=== PATIENT | male | born 1955 | race Caucasian/White ===

== ENCOUNTER 2018-08-11 12:27 | Inpatient (IN) ==
[2018-08-11 13:59] LABS: BASO# 0.11 X1000 (0.0-0.2); BASO% 0.8 % (0.0-0.8); EOS# 0.39 X1000 (0.0-0.7); EOS% 2.9 % (0.0-10.0); HEMATOCRIT 46.4 % (42.0-52.0); HEMOGLOBIN 16.5 g/dL (14.0-18.0); LYMPH# 3.34 X1000 (1.2-3.4); LYMPH% 24.9 % (20.5-51.1); MCH 31.7 PG (27-31); MCHC 35.6 g/dL (33-37); MCV 89.2 FL (81-99); MONO# 0.92 X1000 (0.11-0.59); MONO% 6.9 % (1.7-9.3); MPV 10.5 FL (7.4-10.4); NEUT# 8.64 X1000 (1.4-6.5); NEUT% 64.5 % (42.2-75.2); PLT 198 X1000 (130-400); RDW 12.3 % (11.5-14.5)
[2018-08-11 14:06] LABS: INR 0.94; PROTIME 13.3 Seconds (11.0-16.0)
--- NOTE | 2018-08-11 14:06 | Diag Imaging Result Doc PS360 ---
CHEST-2 VIEWS - 08/11/2018 INDICATION: chest pain COMPARISON: None FINDINGS: The lungs are normally expanded and clear. Heart size and mediastinal contours are normal. No pneumothorax or pleural effusion. IMPRESSION: Negative exam. Electronically signed by Jn Richardson 08/11/2018 2:04 PM
--- NOTE | 2018-08-11 14:23 | EKG Report ---
Test Performed on : 08/11/2018 1:08:50 PM Test Reason : chest pain Blood Pressure : / mmHG Vent. Rate : 085 BPM Atrial Rate : 085 BPM P-R Int : 160 ms QRS Dur : 072 ms QT Int : 376 ms P-R-T Axes : 028 -38 033 degrees QTc Int : 447 ms Normal sinus rhythm. Left axis deviation Low voltage QRS Inferior infarct , age undetermined Cannot rule out Anteroseptal infarct , age undetermined Abnormal ECG No previous ECGs available Unconfirmed Result
[2018-08-11 14:25] LABS: AGAP 12; ALB/GLOB RATIO 1.5; ALBUMIN 4.1 g/dL (3.5-5.0); ALKALINE PHOSPHATASE 71 U/L (32-122); BUN 15 mg/dL (8-22); CALCIUM 8.6 mg/dL (8.8-10.2); CHLORIDE 99 mmol/L (98-107); CK PROFILE 58 U/L (24-204); COSMO 282; CREATININE 0.6 mg/dL (0.7-1.2); ESTIMATED GFR > 60; GLUCOSE 323 mg/dL (70-104); GOT 25 U/L (10-34); GPT 46 U/L (10-44); SODIUM 134 mmol/L (136-145); TCO2 23 mmol/L (25-35); TOTAL BILIRUBIN 0.81 mg/dL (0.20-1.00); TOTAL PROTEIN 6.8 g/dL (6.3-8.3)
--- NOTE | 2018-08-11 14:58 | PROVIDER DOCUMENTATION ---
This chart was entered by Gladys Ward Scribe, acting as scribe for Jai Hernández MD. HPI-Chest Pain - General Chief Complaint: Chest Pain Stated Complaint: CP Time Seen by Provider: 08/11/18 12:38 Source: patient, EMS - History of Present Illness-CP Nature of Presenting Problem: 63 yowm presents to the ed via ems with c/o chest pain, dizziness and elevated BGL. pt sts he was fasting this am to go see his pcp and believes his bgl had "went high" and pt had chest pain (numbness) left anterior and dizziness. pt sts went to his ex home and called 911. pt on exam is back to baseline and sts he feels great just needs us to give him some lunch Location: reports: other (left anterior) Chest Pain Radiation: reports: no radiation Quality of Pain: reports: aching, other (numbness) Severity in ED: moderate (5/10) Onset/Duration: this morning Timing: gone now Context/Activities at Onset: reports: light activity Modifying Factors: improves with: nothing Associated Symptoms: reports: dizziness. denies: abdominal pain, back pain, nausea, shortness of breath, vomiting Nitro Today/Relief: no nitro taken today Aspirin Treatment Today: 325 mg x 1, provided by EMS Similar Symptoms Previously?: Yes (sts same sx when his BGL is elevated) Recently Seen Here or By Another Healthcare Provider: No Review of Systems - Adult - REVIEW OF SYSTEMS - ADULT Constitutional: denies: chills, fever Eyes: reports: no symptoms reported Ears, Nose, Mouth & Throat: reports: no symptoms reported Cardiovascular: reports: see HPI, chest pain. denies: palpitations, syncope Respiratory: denies: shortness of breath, wheezing Gastrointestinal: denies: abdominal pain, diarrhea, nausea, vomiting Genitourinary: reports: no symptoms reported Musculoskeletal: denies: back pain, neck pain Integumentary: reports: no symptoms reported Neurological: reports: see HPI, dizziness/vertigo. denies: slurred speech, syncope, tremors Psychiatric: reports: no symptoms reported Endocrine: reports: no symptoms reported Hematologic/Lymphatic: reports: no symptoms reported Allergic/Immunologic: reports: no symptoms reported All Other Systems: Reviewed and Negative Past History - Adult - PAST MEDICAL HISTORY-ADULT Review of Records: reports: Nursing Assessment Review, Medications Reviewed Major Childhood Illnesses: reports: denies history Cardiovascular: reports: HTN, hyperlipidemia Respiratory: reports: denies history Gastrointestinal: reports: denies history Genitourinary: reports: denies history Musculoskeletal: reports: denies history Hand Dominance: Right Handed Neurological: reports: denies history Psychiatric: reports: denies history Endocrine/Immune: reports: Diabetes Diabetes Type: Type 2 Other Conditions: reports: denies history - PRIOR SURGERIES/PROCEDURES Surgical/Procedure History: reports: orthopedic (extremity) - IMMUNIZATION STATUS Childhood Immunizations: See Nurse Assessment Flu Vaccine: See Nurse Assessment - FAMILY HISTORY Family History: reviewed, not pertinent - SOCIAL HISTORY Smoking: denies Substance Use: denies Living Situation: family Physical Exam-General - PHYSICAL EXAM-ADULT Initial Vital Signs Reviewed: Yes - CONSTITUTIONAL General Appearance: appears well, alert, no apparent distress (pt sts all pain has resolved and now he just needs to eat), obese - EYES Eyes: PERRL/EOMI, pink conjunctivae - HEAD, EARS, NOSE, MOUTH & THROAT HENMT: moist mucous membranes, normal ENT inspection - NECK Neck: non-tender, full range of motion, supple, normal inspection - RESPIRATORY Respiratory: chest non-tender, lungs clear, normal breath sounds, no pleuratic chest pain, no respiratory distress, no accessory muscle use - CARDIOVASCULAR Cardiovascular: normal peripheral pulses, regular rate, rhythm - GASTROINTESTINAL (ABDOMEN) Abdominal Exam: normal bowel sounds, non tender, soft, no organomegaly, no pulsatile mass - LYMPHATIC Lymphatic: no adenopathy - MUSCULOSKELETAL Back Exam: normal inspection, no CVA tenderness, no vertebral tenderness, other (has brace on rt knee) Extremity: normal range of motion, non-tender, normal gait, normal inspection, no pedal edema, no calf tenderness, pelvis stable - SKIN Integumentary: normal color, normal turgor, warm/dry - NEUROLOGIC Neurologic: grossly normal, no motor/sensory deficits - PSYCHIATRIC Psych/Mental Status: normal mood/affect, normal thought content, normal thought process, oriented x 3 - HEART Score HEART Score: History: Slightly Suspicious HEART Score: ECG: Non-Specific Repolarization Disturbance/LBBB/PM HEART Score: Age: 45-65 Years HEART Score: Risk Factors for Atherosclerotic Disease: > or = 3 Risk Factors or History of Atherosclerotic Disease HEART Score: Troponin: < or = Normal Limit Total HEART Score:: 4 Progress - PLAN OF CARE/RESULTS Progress/Plan/Lab Results: Vital Signs - 8 hr 08/11/18 13:20 Pulse Rate 76 Respiratory Rate 19 Blood Pressure 116/78 O2 Sat by Pulse Oximetry 100 Laboratory Results - last 24 hr 08/11/18 08/11/18 08/11/18 13:45 13:45 13:45 WBC 13.40 H RBC 5.20 Hgb 16.5 Hct 46.4 MCV 89.2 MCH 31.7 H MCHC 35.6 RDW Std Deviation 12.3 Plt Count 198 MPV 10.5 H Neut % (Auto) 64.5 Lymph % (Auto) 24.9 [place] % (Auto) 6.9 Eos % (Auto) 2.9 Baso % (Auto) 0.8 Neut # (Auto) 8.64 H Lymph # (Auto) 3.34 [place] # (Auto) 0.92 H Eos # (Auto) 0.39 Baso # (Auto) 0.11 PT INR PTT (Actin FS) Sodium 134 L Potassium 5.0 Chloride 99 Carbon Dioxide 23 L Anion Gap 12 BUN 15 Creatinine 0.6 L Estimated GFR/1.73 m2 > 60 BUN/Creatinine Ratio 25 Glucose 323 H Calculated Osmolality 282 Calcium 8.6 L Total Bilirubin 0.81 AST 25 ALT 46 H Alkaline Phosphatase 71 Creatine Kinase 58 Troponin T Mff-B-Nhkyrcasdgt Pept 11 Total Protein 6.8 Albumin 4.1 Globulin 2.7 Albumin/Globulin Ratio 1.5 08/11/18 08/11/18 13:45 13:45 WBC RBC Hgb Hct MCV MCH MCHC RDW Std Deviation Plt Count MPV Neut % (Auto) Lymph % (Auto) [place] % (Auto) Eos % (Auto) Baso % (Auto) Neut # (Auto) Lymph # (Auto) [place] # (Auto) Eos # (Auto) Baso # (Auto) PT 13.3 INR 0.94 PTT (Actin FS) 23.0 Sodium Potassium Chloride Carbon Dioxide Anion Gap BUN Creatinine Estimated GFR/1.73 m2 BUN/Creatinine Ratio Glucose Calculated Osmolality Calcium Total Bilirubin AST ALT Alkaline Phosphatase Creatine Kinase Troponin T < 0.010 Sga-N-Qewklkqbarv Pept Total Protein Albumin Globulin Albumin/Globulin Ratio Orders Category Date Time Status Cardiac Monitoring DIRECTED Care 08/11/18 13:39 Active Oxygen Therapy- ED Nursing DIRECTED Care 08/11/18 13:39 Active Saline Loc NOW Care 08/11/18 13:39 Active CHEST-2 VIEWS [RAD] Stat Exams 08/11/18 13:39 Completed CBC WITH ELECTRONIC DIFF [HEME] Stat Lab 08/11/18 13:45 Completed CK PROFILE [SP CHEM] Stat Lab 08/11/18 13:45 Completed COMPREHENSIVE METABOLIC PANEL [CHEM] Stat Lab 08/11/18 13:45 Completed PRO B-NATRIURETIC PEPTIDE Stat Lab 08/11/18 13:45 Completed PROTIME WITH INR [COAG] Stat Lab 08/11/18 13:45 Completed PTT [COAG] Stat Lab 08/11/18 13:45 Completed TROPONIN T Stat Lab 08/11/18 13:45 Completed CP/SOB/Palp >45 yrs of Age Stat Oth 08/11/18 13:39 Ordered EKG [EKG] Stat Ther 08/11/18 13:39 Draft Result Diagrams: 08/11/18 13:45 08/11/18 13:45 - REASSESSMENT Reassessment #1 Time Reassessed: 14:36 Status: improving - EKG 1 Time of EKG reading by physician:: 13:08 EKG Read and Signed by:: Jai Hernández EKG Interpretation (*Must complete 3 of following elements*): Abnormal Rate: 85 Rhythm: nsr [place]: left (deviation) QRS: other (low voltage qrs) NE Interval: normal Comments: inferior infarct, age undetermined - XRAY 1 XRAY: Bilateral XRAY Study: Chest Impression: See EMR Report (CHEST-2 VIEWS - 08/11/2018 INDICATION: chest pain COMPARISON: None FINDINGS: The lungs are normally expanded and clear. Heart size and mediastinal contours are normal. No pneumothorax or pleural effusion. IMPRESSION: Negative exam. Electronically signed by Jn Richardson 08/11/2018 2:04 PM 08/11/18 1404 Interpreting Physician: Jn Richardson MD Dictated Date/Time: 08/11/18 1402 cc: Jai Hernández MD;) - CONSULTS/PCP/HOSPITALIST Notification #1 *Consult/PCP/Hospitalist*: hospitalist dr cardoso Time Discussed: 14:56 Consult Disposition: Admit Departure - Departure Date of Disposition Decision: 08/11/18 Time of Disposition Decision: 14:57 DIAGNOSIS: Chest pain, Uncontrolled diabetes mellitus, Hypertension Disposition: ADMITTED INPATIENT 09 Certified Medical Emergency: Emergent Condition: Fair - Critical Care Note This patient required my direct & personal management of CC.: No Attestation - Physician/ NANDO Attestation Patient care was provided by Advanced Practice Provider:: No The physician spent face to face time with patient:: Yes Advanced Practice Provider documentation review:: Supervising physician onsite and consulted in the evaluation and care of this patient. The physician did have a face to face encounter with the patient. This chart was documented by the indicated scribe, (Gladys Ward Scribe) and accurately reflects the services I performed and decisions made by me, Jai Hernández MD, as attested by the provider's signature.
[2018-08-11] MEDS: ASPIRIN PO SCH (15:15)
[2018-08-11] MEDS ORDERED: DUONEB (A & A) INH PRN ×2 (15:46→16:00)
[2018-08-11] MEDS ORDERED: NS 1,000 ML IV ONE (15:46)
[2018-08-11] MEDS: HUMALOG SUBQ SCH ×2 (16:00→20:56)
[2018-08-11] MEDS: NICODERM PATCH TD SCH (16:05)
[2018-08-11 16:30] LABS: HEMOGLOBIN A1C 9.3 % (4.8-6.0)
--- NOTE | 2018-08-11 16:34 | HISTORY AND PHYSICAL ---
PRIMARY CARE PROVIDER: Dr. Kvng Morocho CHIEF COMPLAINT: Chest pain. HISTORY OF PRESENT ILLNESS: Mr. Lopez is a 63-year-old male with a history of diabetes mellitus type 2, hypertension, hyperlipidemia, and nicotine dependence who presents with chest pain that began yesterday evening. Yesterday at around 6:00 or 7:00 p.m. he started having a left-sided chest pain which he describes as a dull ache possibly radiating up to the left neck, jaw, and shoulder. He was at rest, essentially sitting and watching television when the pain came on. It lasted throughout the night and did not change in quality and was associated with some mild shortness of breath. There was no nausea, vomiting, or diaphoresis. He was actually scheduled for blood work at Dr. Morocho's office today but called 911 instead because he was having discomfort and dizziness. He has no fever or chills. He does have a chronic cough. No lower extremity edema. No orthopnea. He does report some occasional paroxysmal nocturnal dyspnea. He denies any abdominal pain. No dysuria, diarrhea, or constipation. In the E.R. his workup was fairly unremarkable. He did have a white count of 13,000 and a blood sugar of 323 with no evidence of diabetic ketoacidosis. His EKG and chest x-ray are also negative. He does have risk factors so we are going to admit him for evaluation of the chest pain. PAST MEDICAL HISTORY: 1. Hypertension. 2. Hyperlipidemia. 3. Diabetes mellitus type 2. 4. Nicotine dependence. PAST SURGICAL HISTORY: He has had a right inguinal hernia repair and a cholecystectomy. SOCIAL HISTORY: He smokes a pack a day. Denies alcohol or drug use. He has a grown child. He is on disability. He is single and lives with his mother. FAMILY HISTORY: The only report of coronary disease is possibly his father but he is unsure. He also has a brother that had a triple bypass. Age of onset in both of those is unknown. REVIEW OF SYSTEMS: A 14 point review of systems was obtained and found to be negative with the exception of the HPI. ALLERGIES: Not recorded. HOME MEDICATIONS: Not yet reconciled. PHYSICAL EXAMINATION: VITAL SIGNS: Blood pressure is 116/78, heart rate 76, respiratory rate 19, and O2 sat 100% on nasal cannula at 2 L. GENERAL: Overweight, disheveled appearing, 63-year-old male lying in a hospital bed in no acute distress. NEUROLOGIC: Awake, alert, and oriented. Follows commands. No focal deficits. HEENT: The head is atraumatic and normocephalic. Pupils are equal, round, and reactive to light. Oral mucosa is slightly dry. NECK: Trachea is midline. There is no JVD. CHEST: Clear to auscultation. Diminished at the bases. CV: Regular rate and rhythm. S1 and S2 are noted. No murmurs, gallops, clicks, or rubs. GI: Soft, nondistended, and nontender. Bowel sounds are positive. EXTREMITIES: No edema, clubbing, or cyanosis. Pulses are 1+ bilaterally. DIAGNOSTIC DATA: Chest x-ray is negative. EKG: Sinus rhythm. First degree AV block. No acute ST or T abnormalities. WBC is 13.4, hemoglobin 16.5, hematocrit 46.4, and platelet count 198. INR is 0.94. Sodium is 134, potassium 5, chloride 99, CO2 23, anion gap 12, BUN 15, creatinine 0.6, glucose 323, calcium 8.6, bilirubin 0.81, AST 25, ALT 46, and ALK PHOS 71. CK is 58. Troponin is negative. ProBNP is 11. ASSESSMENT AND PLAN: 1. Chest pain: Fairly atypical in nature but the patient does have a few risk factors including diabetes mellitus, hypertension, hyperlipidemia, and possibly family history. We will admit him for observation status, trend his cardiac enzymes, check and echocardiogram, and check a stress test in the morning. He will need risk factor modification and smoking cessation education. 2. Type 2 diabetes: We will add some IV fluids as he is fairly hyperglycemic. We will put him on high dose sliding scale, check a hemoglobin A1c, and check pattern sugars. 3. Hyperlipidemia: Check lipids in the morning and treat accordingly. I do not believe he is on any cholesterol lower agents. 4. Nicotine dependence: We have advised the patient to quit smoking. We will write for a nicotine patch and continue cessation education. 5. Deep vein thrombosis prophylaxis with Lovenox. Further recommendations to follow. Dictated by DALE Lamar for Gaston Jameson MD cc: DALE Lamar MD I have seen and examined Mr Lopez today. He presents with Chest pain and has significant risk factors. He will be admitted for cardiac re-stratification. I agree with the above HPI and the plan reflects my opinion discussed with the TWISTING DEPARTMENT END FINDER. I have also discussed my plan with Mr Lopez. [place]
[2018-08-11] MEDS ORDERED: LOVENOX SUBQ SCH (17:00)
[2018-08-11 19:20] LABS: UR AMPHETAMINES QUAL PRESUMPTIVE POSITIVE (NONE DETECT); UR BARBITUATES QUAL NONE DETECTED (NONE DETECT); UR BENZODIAZEPIN QUAL NONE DETECTED (NONE DETECT); UR CANNABINOIDS QUAL NONE DETECTED (NONE DETECT); UR COCAINE QUAL NONE DETECTED (NONE DETECT); UR METHADONE QUAL NONE DETECTED (NONE DETECT); UR OPIATES QUAL NONE DETECTED (NONE DETECT); UR OXYCODONE QUAL NONE DETECTED (NONE DETECT); UR PCP QUAL NONE DETECTED (NONE DETECT)
[2018-08-11 19:28] LABS: URINE SOURCE CLEAN CATCH
[2018-08-11 19:30] LABS: BILIRUBIN URINE NEGATIVE (NEGATIVE); BLOOD URINE NEGATIVE (NEGATIVE); COLOR YELLOW; GLUCOSE URINE >1000 mg/dL (NEGATIVE); KETONE URINE TRACE mg/dL (NEGATIVE); LEUKOCYTES URINE NEGATIVE (NEGATIVE); NITRITE URINE NEGATIVE (NEGATIVE); PROTEIN URINE NEGATIVE (NEGATIVE); SP GRAVITY URINE 1.038; TURBIDITY URINE CLEAR (CLEAR); UROBILINOGEN URINE NORMAL (NORMAL)
[2018-08-11 19:32] LABS: UR EPITHELIAL CELLS <10 /HPF (<10); URINE BACTERIA NEGATIVE /HPF; URINE RBC <10 /HPF (<10); URINE WBC <10 /HPF (<10)
[2018-08-11 20:04] LABS: URINE CRYSTALS NONE SEEN; URINE YEAST PRESENT
--- NOTE | 2018-08-11 23:55 | ECHO REPORT ---
ORDER DATE: 08/11/2018 MEASUREMENTS: Septal thickness 1.3, posterior wall thickness 1.3, aortic root 2.8, left atrium 2.4. SUMMARY: 1. Technically difficult study due to limited acoustic window quality. 2. Aortic valve is without evidence of structural abnormality and opens adequately on 2- dimensional images. Peak gradient across the aortic valve is less than 10 mmHg. There is trace aortic regurgitation. Mitral and tricuspid valves are without evidence of structural abnormality while pulmonic valve is not well demonstrated. There is trace tricuspid regurgitation. The estimated systolic PA pressure by Doppler is 35 mmHg, suggesting mild pulmonary hypertension. Aortic root is normal size. 3. Normal left ventricular chamber size with mild concentric left hypertrophy is demonstrated. Estimated left ventricular ejection fraction appears to be at least 65%. No obvious regional wall motion abnormality can be appreciated. Left atrium, right atrium, right ventricle are normal in size with grossly preserved right ventricular systolic function. 4. No pericardial effusion. 5. Inferior vena cava not well demonstrated. cc: MD Erick Pena CRNP
[2018-08-12] MEDS: HUMALOG SUBQ SCH ×2 (06:43→12:57)
[2018-08-12 07:18] VITALS: BP 128/73
[2018-08-12 08:02] LABS: HEMATOCRIT 43.4 % (42.0-52.0); HEMOGLOBIN 15.3 g/dL (14.0-18.0); MCH 31.5 PG (27-31); MCHC 35.3 g/dL (33-37); MCV 89.5 FL (81-99); MPV 10.4 FL (7.4-10.4); RBC 4.85 XMIL (4.7-6.1); RDW 12.3 % (11.5-14.5); WBC 10.14 X1000 (4.8-10.8)
[2018-08-12 08:06] LABS: AGAP 10; BUN 14 mg/dL (8-22); CHLORIDE 101 mmol/L (98-107); CK PROFILE 61 U/L (24-204); COSMO 277; CREATININE 0.5 mg/dL (0.7-1.2); ESTIMATED GFR > 60; GLUCOSE 208 mg/dL (70-104); POTASSIUM 4.3 mmol/L (3.5-5.1); SODIUM 135 mmol/L (136-145); TCO2 24 mmol/L (25-35)
[2018-08-12] MEDS ORDERED: LANTUS INSULIN SUBQ SCH (09:00)
[2018-08-12] MEDS: NICODERM PATCH TD SCH (10:43)
[2018-08-12] MEDS ORDERED: LEXISCAN ONE (12:20)
[2018-08-12] MEDS: ASPIRIN PO SCH (14:22)
--- NOTE | 2018-08-12 14:46 | Diag Imaging Result Document ---
PROCEDURE NAME: MYOCARDIAL PERF SCAN, STR/REST - 08/12/2018 LEXISCAN CARDIOLITE STRESS TEST: FINDINGS: Lexiscan was infused per standard protocol. There was no chest pain. Stress electrocardiogram was negative for ischemia. Following Lexiscan infusion, Cardiolite was injected. 12.5 mCi of Cardiolite was injected for the rest phase, 36 millicuries of Cardiolite was injected for the stress phase. Images revealed chest wall and diaphragmatic attenuation. Normal left ventricular cavity size. Normal myocardial perfusion. Left ventricular ejection fraction by gated SPECT was 70%. CONCLUSIONS: 1. No chest pain. 2. Negative Lexiscan stress electrocardiogram. 3. Normal myocardial perfusion. 4. Left ventricular ejection fraction 70%. cc: MD Erick Faulkner CRNP
--- NOTE | 2018-08-13 12:51 | DISCHARGE SUMMARY ---
ADMISSION DATE: 08/11/2018 DISCHARGE DATE: 08/12/2018 DISPOSITION: Home. FOLLOWUP: Follow up will be with patient's PCP Dr. Kvng Morocho. CONSULTATIONS DURING THIS ADMISSION: None. INVASIVE PROCEDURE DONE DURING THIS ADMISSION: None. IMAGING STUDIES OF SIGNIFICANCE: 1. Chest x-ray was negative. 2. Echocardiogram showed an ejection fraction of 65%. No obvious regional wall motion abnormality was appreciated. 3. Myocardial perfusion scan showed normal studies with ejection fraction of 70%. 4. The patient's troponins were trended 4 times, all negative. ADMISSION DIAGNOSES: 1. Chest pain. 2. Diabetes mellitus. 3. Dyslipidemia. 4. Nicotine dependence. DIAGNOSES AT THE TIME OF DISCHARGE: 1. Atypical chest pain with normal echocardiogram, stress test, and normal troponins. This is deemed to be noncardiac in origin. 2. Uncontrolled diabetes mellitus with a presenting A1c of 9.3. 3. Dyslipidemia. 4. Nicotine dependence. 5. Medication noncompliance. DISCHARGE MEDICATIONS: 1. Gabapentin 400 mg 3 times per day. 2. Januvia 100 mg daily. 3. Lisinopril 20 mg daily. 4. Pravastatin 20 mg at bedtime. 5. Metformin 1000 daily. PRESENTING COMPLAINT: Chest pain. HISTORY OF PRESENTING COMPLAINT: Mr. Lopez is a 63-year-old male who presented to the emergency department because of chest discomfort. He is diabetic. He has dyslipidemia. He has hypertension and he is also chronic smoker and he also has a family history of coronary artery disease in a brother with a triple bypass. Because of his risk factors and high heart score, the patient was admitted for cardiac risk stratification. HOSPITAL COURSE: Mr. Lopez was admitted to the medical floor. He was adequately hydrated, was kept NPO for cardiac workup. Stress test and echo were done. Patient's troponins were also trended. EKG was unremarkable. We got the results back, everything seems to be fine. The patient this morning refers that his chest pain has resolved and with the negative testing, we thought he was okay for discharge. Mr. Lopez said that he had ran out of his prescription for some time and that is why his A1c was that elevated, so he has been given a prescription for about 3 months supply. He has been advised to follow up with his primary care doctor, Dr. Morocho. Other discharge instructions have been discussed with him. We will also stressed the utmost importance of tobacco cessation. Time spent for discharge is 35 minutes. cc: MD Kvng Michelle MD
== END 2018-08-12 16:02 | disposition home or self-care (01) | DRG 313 ==
LOC: EDIPHOLD 12:27 → ED 12:27 → OBSVTOIN 16:40 → 3N 21:53
PROVIDERS: ATTEND Internal Medicine
CPT/HCPCS: 71020; 71046; 78452; 80048; 80053; 80061; 80101; 80301; 80307; 80324; 80345; 80346; 80353; 80358; 80361; 80365; 81001; 82550; 82948; 83036; 83721; 83880; 83992; 84484; 85025; 85027; 85610; 85730; 93005; 93017; 93306; 94761; 96372; 99285; A9270; A9500; G0431; G0434; G0479; G0480; J1650; J1815; J2785; J7030; XXXXX

== ENCOUNTER 2019-02-11 12:38 | Inpatient (IN) ==
--- NOTE | 2019-02-11 13:24 | Diag Imaging Result Doc PS360 ---
EXAM: CT HEAD W/O CONTRAST HISTORY: stroke like symptoms TECHNIQUE: CT head without contrast COMPARISON: None. FINDINGS: No parenchymal hemorrhage. No epidural or subdural hematoma. No subarachnoid hemorrhage. No mass identified on this noncontrasted exam. No hydrocephalus. No sinus opacification. IMPRESSION: No hemorrhage. Negative brain CT without contrast. This exam was performed using automated exposure control, adjustment of mA or kV according to patient size, and/or use of iterative reconstruction technique. Electronically signed by Fer Enriquez 02/11/2019 1:22 PM
--- NOTE | 2019-02-11 13:30 | Diag Imaging Result Doc PS360 ---
EXAM: CHEST-PORTABLE HISTORY: stroke like symptoms TECHNIQUE: 02/10/2019 COMPARISON: 08/11/2018 FINDINGS: Poor inspiratory effort. The heart is not enlarged. The vessels are not distended. There are no infiltrates. No effusion identified. IMPRESSION: Negative exam. Electronically signed by Fer Enriquez 02/11/2019 1:27 PM
[2019-02-11 13:33] LABS: BASO# 0.06 X1000 (0.0-0.2); BASO% 0.5 % (0.0-0.8); EOS% 0.8 % (0.0-10.0); HEMATOCRIT 49.3 % (42.0-52.0); IMM GRAN# 0.07 X1000 (0.0-0.04); IMM GRAN% 0.6 % (0.0-0.5); LYMPH% 16.1 % (20.5-51.1); MCHC 34.5 g/dL (33-37); MCV 87.1 FL (81-99); MONO# 0.89 X1000 (0.11-0.59); MONO% 7.2 % (1.7-9.3); MPV 9.8 FL (7.4-10.4); NEUT# 9.31 X1000 (1.4-6.5); NEUT% 74.8 % (42.2-75.2); PLT 201 X1000 (130-400); RBC 5.66 XMIL (4.7-6.1); RDW 12.7 % (11.5-14.5); WBC 12.43 X1000 (4.8-10.8)
[2019-02-11 13:42] LABS: INR 0.97
[2019-02-11 13:43] LABS: PTT 24.4 Seconds (22.3-41.8)
[2019-02-11 13:56] LABS: AGAP 16; ALB/GLOB RATIO 1.9; ALBUMIN 4.3 g/dL (3.5-5.0); ALKALINE PHOSPHATASE 75 U/L (32-122); BUN 11 mg/dL (8-22); CALCIUM 9.5 mg/dL (8.8-10.2); CHLORIDE 99 mmol/L (98-107); COSMO 283; CREATININE 0.6 mg/dL (0.7-1.2); ESTIMATED GFR > 60; GLUCOSE 249 mg/dL (70-104); GOT 23 U/L (10-34); GPT 25 U/L (10-44); POTASSIUM 4.4 mmol/L (3.5-5.1); SODIUM 138 mmol/L (136-145); TCO2 23 mmol/L (25-35); TOTAL BILIRUBIN 1.01 mg/dL (0.20-1.00); TOTAL PROTEIN 6.6 g/dL (6.3-8.3)
[2019-02-11 15:24] LABS: URINE SOURCE CATH
[2019-02-11 15:32] LABS: BILIRUBIN URINE NEGATIVE (NEGATIVE); BLOOD URINE NEGATIVE (NEGATIVE); COLOR YELLOW; GLUCOSE URINE >1000 mg/dL (NEGATIVE); KETONE URINE 40 mg/dL (NEGATIVE); LEUKOCYTES URINE NEGATIVE (NEGATIVE); NITRITE URINE NEGATIVE (NEGATIVE); PH URINE 5.5; PROTEIN URINE TRACE mg/dL (NEGATIVE); SP GRAVITY URINE 1.036; TURBIDITY URINE CLEAR (CLEAR); UROBILINOGEN URINE NORMAL (NORMAL)
[2019-02-11 15:34] LABS: UR EPITHELIAL CELLS <10 /HPF (<10); URINE BACTERIA NEGATIVE /HPF; URINE RBC <10 /HPF (<10); URINE WBC <10 /HPF (<10)
[2019-02-11] MEDS ORDERED: ATIVAN IV ONE (15:45)
--- NOTE | 2019-02-11 15:48 | PROVIDER DOCUMENTATION ---
This chart was entered by Irene Allen Scribe, acting as scribe for Jai Hernández MD. HPI-Neurological Disorder - General Stated Complaint: Poss Stroke Time Seen by Provider: 02/11/19 12:41 Source: patient, family, EMS Allergies/Adverse Reactions: Patient Allergies Allergy/AdvReac Type Severity Reaction Status Date / Time Tetanus Vaccines and Toxoid Allergy Unknown Verified 08/11/18 16:50 Home Medications: Home Medication List Medication Instructions Recorded Confirmed Last Taken Type NK [No Home Medications] 02/11/19 02/11/19 Unknown History - History of Present Illness-Neuro Nature of Presenting Problem: 63yom presents to ED by EMS cc stroke like symptoms according to EMS. EMS reports pt family last saw him normal last night and called for a well check this morning. When EMS arrived they had to break in the door and found pt with slurred speech, right side deficits and only knows name. Onset of symptoms is unknown. Pt daughter is at bedside and reports she called pt numerous times this morning with no answer and then called for well check, when she and EMS got inside pt was in floor, said he couldn't feel right side. Daughter also reports pt has DM and has been out of meds due to no insurance. Pt reports he is unsure how he got in floor. Onset/Duration: reports: unsure Timing: reports: still present Context: reports: impaired speech Character of Deficits: reports: new weakness (right side face and RUE), impaired speech New weakness or altered sensation location:: reports: RUE Associated Symptoms: reports: confusion Similar Symptoms Previously?: No Recently seen or treated by another doctor?: No Review of Systems - Adult - REVIEW OF SYSTEMS - ADULT ROS:: ROS per family Constitutional: reports: see HPI. denies: chills, fever, weight loss Eyes: reports: no symptoms reported Ears, Nose, Mouth & Throat: reports: no symptoms reported Cardiovascular: reports: no symptoms reported Respiratory: reports: no symptoms reported Gastrointestinal: reports: no symptoms reported Genitourinary: reports: no symptoms reported Musculoskeletal: reports: no symptoms reported Integumentary: reports: no symptoms reported Neurological: reports: see HPI, slurred speech, other (right side deficits) Psychiatric: reports: no symptoms reported Endocrine: reports: no symptoms reported Hematologic/Lymphatic: reports: no symptoms reported Allergic/Immunologic: reports: no symptoms reported All Other Systems: Reviewed and Negative Past History - Adult - PAST MEDICAL HISTORY-ADULT Review of Records: reports: Nursing Assessment Review, Medications Reviewed, Social history reviewed & non-contributory. Major Childhood Illnesses: reports: denies history Cardiovascular: reports: denies history Respiratory: reports: denies history Gastrointestinal: reports: denies history Obstetrical/Gynecological: reports: denies history Genitourinary: reports: denies history Musculoskeletal: reports: denies history Neurological: reports: denies history Endocrine/Immune: reports: denies history Other Conditions: reports: denies history - IMMUNIZATION STATUS Childhood Immunizations: See Nurse Assessment Flu Vaccine: See Nurse Assessment - FAMILY HISTORY Family History: reviewed, not pertinent Physical Exam- Neurological - Physical Exam-Neuro Initial Vital Signs Reviewed: Yes General Appearance: lethargic, slow to respond. negative: anxious, combative Eye Exam: bilateral eye: normal inspection, PERRL HENMT: normocephalic/atraumatic, moist mucous membranes. negative: angioedema Head Injury: no evidence of injury. negative: contusions Respiratory: chest non-tender, lungs clear, normal breath sounds. negative: wheezing Cardiovascular: normal peripheral pulses, regular rate, rhythm, no edema. negative: bradycardia, tachycardia Abdominal Exam: normal bowel sounds, non tender, soft. negative: rebound Extremity: normal inspection. 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 negative: jaundice Psych/Mental Status: negative: anxious, disheveled - Glascow Coma Scale Best Eye Response: (3) open to voice Best Verbal Response: (4) confused conversation Best Motor Response: (5) localizes to pain Total Glascow Score: 12 Progress - PLAN OF CARE/RESULTS Progress/Plan/Lab Results: Vital Signs - 8 hr 02/11/19 13:03 02/11/19 13:04 02/11/19 13:15 Temperature Pulse Rate 85 Respiratory Rate 15 Blood Pressure 155/94 O2 Sat by Pulse Oximetry 100 100 98 02/11/19 13:23 02/11/19 14:01 02/11/19 15:02 Temperature 97.6 F Pulse Rate 88 87 88 Respiratory Rate 10 L 15 20 Blood Pressure 155/94 173/100 154/72 O2 Sat by Pulse Oximetry 96 99 98 02/11/19 15:31 Temperature Pulse Rate 99 H Respiratory Rate 15 Blood Pressure 173/84 O2 Sat by Pulse Oximetry 97 Laboratory Results - last 24 hr 02/11/19 02/11/19 02/11/19 13:19 13:19 13:19 WBC 12.43 H RBC 5.66 Hgb 17.0 Hct 49.3 MCV 87.1 MCH 30.0 MCHC 34.5 RDW Std Deviation 12.7 Plt Count 201 MPV 9.8 Immature Gran % (Auto) 0.6 H Neut % (Auto) 74.8 Lymph % (Auto) 16.1 L [place] % (Auto) 7.2 Eos % (Auto) 0.8 Baso % (Auto) 0.5 Immature Gran # (Auto) 0.07 H Neut # (Auto) 9.31 H Lymph # (Auto) 2.00 [place] # (Auto) 0.89 H Eos # (Auto) 0.10 Baso # (Auto) 0.06 PT 13.0 INR 0.97 PTT (Actin FS) 24.4 Sodium 138 Potassium 4.4 Chloride 99 Carbon Dioxide 23 L Anion Gap 16 BUN 11 Creatinine 0.6 L Estimated GFR/1.73 m2 > 60 BUN/Creatinine Ratio 18 Glucose 249 H Calculated Osmolality 283 Calcium 9.5 Total Bilirubin 1.01 H AST 23 ALT 25 Alkaline Phosphatase 75 Ammonia Troponin T Total Protein 6.6 Albumin 4.3 Globulin 2.3 Albumin/Globulin Ratio 1.9 Urine Source Urine Color Urine Turbidity Urine pH Ur Specific [place] Urine Protein Ur Glucose (Stick) Ur Ketones (Stick) Urine Blood Urine Nitrite Urine Bilirubin Urobilinogen Dipstick Urine Leukocytes Urine WBC (Auto) Urine RBC (Auto) U Epithel Cells (Auto) Urine Bacteria (Auto) Urine Opiates Screen Ur Oxycodone Screen Ur Methadone, Qual Ur Barbiturates Screen Ur Phencyclidine Scrn Ur Amphetamines Screen U Benzodiazepines Scrn Urine Cocaine Screen U Cannabinoids Screen 02/11/19 02/11/19 02/11/19 13:19 14:35 15:05 WBC RBC Hgb Hct MCV MCH MCHC RDW Std Deviation Plt Count MPV Immature Gran % (Auto) Neut % (Auto) Lymph % (Auto) [place] % (Auto) Eos % (Auto) Baso % (Auto) Immature Gran # (Auto) Neut # (Auto) Lymph # (Auto) [place] # (Auto) Eos # (Auto) Baso # (Auto) PT INR PTT (Actin FS) Sodium Potassium Chloride Carbon Dioxide Anion Gap BUN Creatinine Estimated GFR/1.73 m2 BUN/Creatinine Ratio Glucose Calculated Osmolality Calcium Total Bilirubin AST ALT Alkaline Phosphatase Ammonia 11 L Troponin T < 0.010 Total Protein Albumin Globulin Albumin/Globulin Ratio Urine Source CATH Urine Color YELLOW Urine Turbidity CLEAR Urine pH 5.5 Ur Specific [place] 1.036 Urine Protein TRACE A Ur Glucose (Stick) >1000 A Ur Ketones (Stick) 40 A Urine Blood NEGATIVE Urine Nitrite NEGATIVE Urine Bilirubin NEGATIVE Urobilinogen Dipstick NORMAL Urine Leukocytes NEGATIVE Urine WBC (Auto) <10 Urine RBC (Auto) <10 U Epithel Cells (Auto) <10 Urine Bacteria (Auto) NEGATIVE Urine Opiates Screen Ur Oxycodone Screen Ur Methadone, Qual Ur Barbiturates Screen Ur Phencyclidine Scrn Ur Amphetamines Screen U Benzodiazepines Scrn Urine Cocaine Screen U Cannabinoids Screen 02/11/19 15:05 WBC RBC Hgb Hct MCV MCH MCHC RDW Std Deviation Plt Count MPV Immature Gran % (Auto) Neut % (Auto) Lymph % (Auto) [place] % (Auto) Eos % (Auto) Baso % (Auto) Immature Gran # (Auto) Neut # (Auto) Lymph # (Auto) [place] # (Auto) Eos # (Auto) Baso # (Auto) PT INR PTT (Actin FS) Sodium Potassium Chloride Carbon Dioxide Anion Gap BUN Creatinine Estimated GFR/1.73 m2 BUN/Creatinine Ratio Glucose Calculated Osmolality Calcium Total Bilirubin AST ALT Alkaline Phosphatase Ammonia Troponin T Total Protein Albumin Globulin Albumin/Globulin Ratio Urine Source Urine Color Urine Turbidity Urine pH Ur Specific [place] Urine Protein Ur Glucose (Stick) Ur Ketones (Stick) Urine Blood Urine Nitrite Urine Bilirubin Urobilinogen Dipstick Urine Leukocytes Urine WBC (Auto) Urine RBC (Auto) U Epithel Cells (Auto) Urine Bacteria (Auto) Urine Opiates Screen NONE DETECTED Ur Oxycodone Screen NONE DETECTED Ur Methadone, Qual NONE DETECTED Ur Barbiturates Screen NONE DETECTED Ur Phencyclidine Scrn NONE DETECTED Ur Amphetamines Screen PRESUMPTIVE POSITIVE A U Benzodiazepines Scrn NONE DETECTED Urine Cocaine Screen NONE DETECTED U Cannabinoids Screen NONE DETECTED Orders Category Date Time Status Cardiac Monitoring DIRECTED Care 02/11/19 12:41 Active Finger Stick Blood Sugar (ED) DIRECTED Care 02/11/19 12:41 Active Oxygen Therapy- ED Nursing DIRECTED Care 02/11/19 12:41 Active Saline Loc NOW Care 02/11/19 12:41 Active CHEST-PORTABLE [RAD] Stat Exams 02/11/19 12:[address] HEAD W/O CONTRAST [CT] Stat Exams 02/11/19 12:41 Completed AMMONIA [CHEM] Stat Lab 02/11/19 14:35 Completed CBC WITH ELECTRONIC DIFF [HEME] Stat Lab 02/11/19 13:19 Completed CK TOTAL [CHEM] Stat Lab 02/11/19 13:19 Received COMPREHENSIVE METABOLIC PANEL [CHEM] Stat Lab 02/11/19 13:19 Completed PROTIME WITH INR [COAG] Stat Lab 02/11/19 13:19 Completed PTT [COAG] Stat Lab 02/11/19 13:19 Completed TROPONIN T Stat Lab 02/11/19 13:19 Completed URINALYSIS W/POSS RFLX CULT [URINALYSIS] Stat Lab 02/11/19 15:05 Completed URINE DRUG SCREEN Stat Lab 02/11/19 15:05 Completed 0.9% Sodium Chloride Inj [Ns] 1,000 ml Med 02/11/19 12:41 Active IV 250 mls/hr Aspirin Med 02/11/19 15:49 Discontinued 325 mg PO NOW ONE Lorazepam [Ativan] Med 02/11/19 15:45 Discontinued 1 mg IV NOW ONE Lorazepam [Ativan] Med 02/11/19 16:06 Discontinued 2 mg .ROUTE .STK-MED ONE EKG [EKG] Stat Ther 02/11/19 12:41 Ordered Result Diagrams: 02/11/19 13:19 02/11/19 13:19 - EKG 1 Time of EKG reading by physician:: 13:26 EKG Read and Signed by:: Jai Hernández EKG Interpretation (*Must complete 3 of following elements*): Abnormal (inferior infarct,age undetermined; anteroseptal infarct,age undetermined) Rate: 89 Rhythm: NSR [place]: left FL Interval: normal - CT/MRI 1 CT Study: Head Impression: See EMR Report (IMPRESSION: No hemorrhage. Negative brain CT without contrast. This exam was performed using automated exposure control, adjustment of mA or kV according to patient size, and/or use of iterative reconstruction technique. Electronically signed by Fer Zoe 02/11/2019 1:22 PM) - CONSULTS/PCP/HOSPITALIST Notification #1 *Consult/PCP/Hospitalist*: Pt discussed with uSe [facility] for Hospitalist Consult Disposition: Will see in ED, Admit Departure - Departure Date of Disposition Decision: 02/11/19 Time of Disposition Decision: 15:46 DIAGNOSIS: Stroke, Hypertension, Uncontrolled diabetes mellitus, AMS (altered mental status), Substance abuse Disposition: ADMITTED INPATIENT 09 Certified Medical Emergency: Emergent Condition: Fair Referrals and Follow-Ups: Kvng Morocho [Primary Care Provider] - - Critical Care Note This patient required my direct & personal management of CC.: No Attestation - Physician/ NANDO Attestation Patient care was provided by Advanced Practice Provider:: No The physician spent face to face time with patient:: Yes Advanced Practice Provider documentation review:: Supervising physician onsite and consulted in the evaluation and care of this patient. The physician did have a face to face encounter with the patient. - NIH Stroke Scale NIH Type: Initial Evaluation Level of Consciousness: 1-Drowsy, but arousable with minimal stimulation LOC Questions (ask month and age): 0-Answers Both Correctly LOC Commands (ask to open & close eyes;make a fist, let go): 2-Both Incorrect Best Gaze (horizontal eye movement): 0-Normal Visual (use finger movement, counting or visual threat): 0-No Visual Loss Facial Palsy (show teeth or raise eyebrows & close eyes tght: 0-Symmetrical Movement Motor Function-left arm: 0-Normal Motor Function-right arm: 2-Some Effort Against [place] Motor Function-left le-Normal Motor Function-right le-Normal Limb Ataxia([id number], or heel to mcpherson): 0-No Ataxia Sensory(pin prick to face,arms,trunk,legs-compare side/side): 1-Mild to Moderate Decrease in Sensation Best Language(name item/read sentence.Ex-Down to Earth): 0-No Aphasia Dysarthria(Pt read words or say words Ex.Mama,Tip-Top,Thanks: 0-Normal Articulation Extinction and Inattention: 1-Partial Neglect NIH Total Score: 7 Modified Thornton Score Criteria: 3-moderate disability This chart was documented by the indicated scribe, (Irene Allen, Vikasibkm) and accurately reflects the services I performed and decisions made by me, Jai Hernández MD, as attested by the provider's signature.
[2019-02-11] MEDS ORDERED: ASPIRIN PO ONE (15:49)
[2019-02-11 15:53] LABS: UR AMPHETAMINES QUAL PRESUMPTIVE POSITIVE (NONE DETECT); UR BARBITUATES QUAL NONE DETECTED (NONE DETECT); UR BENZODIAZEPIN QUAL NONE DETECTED (NONE DETECT); UR CANNABINOIDS QUAL NONE DETECTED (NONE DETECT); UR COCAINE QUAL NONE DETECTED (NONE DETECT); UR METHADONE QUAL NONE DETECTED (NONE DETECT); UR OPIATES QUAL NONE DETECTED (NONE DETECT); UR OXYCODONE QUAL NONE DETECTED (NONE DETECT); UR PCP QUAL NONE DETECTED (NONE DETECT)
[2019-02-11] MEDS: NS 1,000 ML IV PRN ×2 (16:05→21:26)
[2019-02-11] MEDS ORDERED: ATIVAN ONE (16:06)
[2019-02-11] MEDS ORDERED: ASPIRIN PR ONE (16:30)
--- NOTE | 2019-02-11 16:38 | EKG Report ---
Test Performed on : 02/11/2019 1:06:40 PM Test Reason : Stroke like symptoms Blood Pressure : / mmHG Vent. Rate : 089 BPM Atrial Rate : 089 BPM P-R Int : 160 ms QRS Dur : 078 ms QT Int : 384 ms P-R-T Axes : 051 -38 047 degrees QTc Int : 467 ms Normal sinus rhythm. Left axis deviation Inferior infarct (cited on or before 11-AUG-2018) Anteroseptal infarct (cited on or before 11-AUG-2018) Abnormal ECG When compared with ECG of 11-AUG-2018 13:08, No significant change was found Unconfirmed Result
[2019-02-11] MEDS ORDERED: ZOFRAN IV PRN (16:52)
[2019-02-11] MEDS ORDERED: SODIUM CHLORIDE 0.9% INJ SCH (17:00)
[2019-02-11] MEDS ORDERED: APRESOLINE IV PRN (17:42)
--- NOTE | 2019-02-11 18:06 | HISTORY AND PHYSICAL ---
CHIEF COMPLAINT: Stroke. HISTORY OF PRESENT ILLNESS: This is a 63-year-old gentleman with a prior history of COPD, diabetes mellitus and hypertension, who presented to the emergency room via EMS. At the time of my exam the patient is sedated on Ativan after becoming combative. There are no family members present, so information is taken from the chart and ER record. Mr. Lopez's family reported seeing him normal last night. They called this morning to check on him. He did not answer after multiple calls; therefore, they called for a welfare check. On EMS arrival, they had to break the door down to get into the house, found the patient lying on the floor naked. He had slurred speech, right-sided deficits and he only knew his name. The daughter did report he has diabetes and hypertension, and he quit taking his medications because of lack of insurance. CT scan of the head revealed a negative brain CT without contrast. PAST MEDICAL HISTORY: Diabetes mellitus, hypertension, COPD. PAST SURGICAL HISTORY: Cholecystectomy. SOCIAL HISTORY: He smokes a pack a day. The family denies any alcohol use. They denied any illicit drug use, although he did have a drug screen positive for amphetamines. ALLERGIES: Recorded in the chart are tetanus vaccine and toxoid, with unknown reaction. HOME MEDICATIONS: None. REVIEW OF SYSTEMS: Unable to obtain. PHYSICAL EXAMINATION: GENERAL: This is a 63-year-old gentleman who is lying on the stretcher on his left side, sedated after Ativan in no distress. VITAL SIGNS: Blood pressure is 173/84 with a heart rate of 99, respirations 16, temperature is 97.6 degrees oral with room air saturations 98% to 99%. HEENT: Pupils are equal, round and react to light. Sclerae are anicteric. Head is normocephalic, atraumatic. Mucous membranes are moist. NECK: Supple. Trachea midline. CARDIOVASCULAR: Regular rate and rhythm. S1 and S2 appreciated. Peripheral pulses are palpable x4 extremities. PULMONARY: Breath sounds are clear with no increased work of breathing noted. Chest rises and falls symmetrically with respiration. GASTROINTESTINAL: Abdomen is soft, nondistended, with bowel sounds in all 4 quadrants. NEUROLOGIC: The patient is sedated at present. SKIN: Warm and dry. LABORATORY DATA: WBC is 12, hemoglobin 17, hematocrit 49.3, and platelets 201,000. Sodium 138, potassium 4.4, BUN 11, creatinine 0.6 with a glucose of 249. Troponin is negative. Urinalysis reveals greater than 1000 glucose, otherwise negative. Urine drug screen is positive for amphetamines. DIAGNOSTIC DATA: CT of the head revealed no hemorrhage; negative brain CT. Chest x-ray: Negative exam. ASSESSMENT: 1. Cerebrovascular accident with right-sided deficits. 2. Diabetes mellitus type 2, with noncompliance. 3. Hypertension, with noncompliance with medications. 4. Altered mental status. 5. Substance abuse. PLAN: The patient will be admitted to the step-down unit, placed on telemetry with neurologic checks per stroke protocol. permissive hypertension, treating pressure greater than 190 systolic and 100 diastolic with hydralazine p.r.n., Ativan 1 mg q.4 hours as needed for agitation. gentle hydration. TSH, folate and B12. CBC and CMP in the morning. hemoglobin A1c. Pattern blood glucose with sliding scale insulin. Echocardiogram and carotid Doppler in the morning. Plan was discussed with Dr Gutierrez. Further treatments pending hospital course. Dictated by DALE Monroe for Tres Astorga MD Addendum: Patient seen and examined by myself. Agree with DALE note. It reflects my assessment and plan. Patient is being admitted to hospital for for CVA with right side deficit. Will consult Neurology and will order MRI of brain, MRA of brain and neck. Will start PT/OT and swallow evaluation. Will monitor patient closely. cc: DALE Monroe MD [facility]
[2019-02-11] MEDS: ATIVAN IV PRN ×2 (19:17→23:03)
[2019-02-11] MEDS: HUMALOG SUBQ SCH (21:07)
[2019-02-11] MEDS: PROTONIX IV SCH (21:14)
[2019-02-11] MEDS ORDERED: NS 1,000 ML IV SCH (23:30)
[2019-02-12] MEDS: ATIVAN IV PRN ×4 (04:46→22:13)
[2019-02-12 06:07] LABS: BASO# 0.08 X1000 (0.0-0.2); BASO% 0.6 % (0.0-0.8); EOS# 0.12 X1000 (0.0-0.7); HEMATOCRIT 42.4 % (42.0-52.0); HEMOGLOBIN 14.5 g/dL (14.0-18.0); IMM GRAN# 0.05 X1000 (0.0-0.04); IMM GRAN% 0.4 % (0.0-0.5); LYMPH# 2.34 X1000 (1.2-3.4); MCH 31.3 PG (27-31); MCHC 34.2 g/dL (33-37); MCV 91.4 FL (81-99); MONO# 1.13 X1000 (0.11-0.59); MONO% 9.2 % (1.7-9.3); NEUT# 8.61 X1000 (1.4-6.5); NEUT% 69.8 % (42.2-75.2); PLT 211 X1000 (130-400); RBC 4.64 XMIL (4.7-6.1); WBC 12.33 X1000 (4.8-10.8)
[2019-02-12 06:21] LABS: AGAP 15; ALB/GLOB RATIO 1.3; ALBUMIN 3.3 g/dL (3.5-5.0); ALKALINE PHOSPHATASE 62 U/L (32-122); BUN 11 mg/dL (8-22); CALCIUM 8.3 mg/dL (8.8-10.2); CHLORIDE 103 mmol/L (98-107); COSMO 274; CREATININE 0.5 mg/dL (0.7-1.2); ESTIMATED GFR > 60; GLUCOSE 149 mg/dL (70-104); GOT 19 U/L (10-34); GPT 18 U/L (10-44); POTASSIUM 3.5 mmol/L (3.5-5.1); SODIUM 136 mmol/L (136-145); TCO2 18 mmol/L (25-35); TOTAL BILIRUBIN 1.48 mg/dL (0.20-1.00); TOTAL PROTEIN 5.8 g/dL (6.3-8.3)
[2019-02-12 06:30] LABS: TSH 1.59 uIUmL (0.27-4.20)
[2019-02-12] MEDS: HUMALOG SUBQ SCH ×4 (06:33→20:36)
[2019-02-12 06:36] LABS: CHOLESTEROL 97 mg/dL (0-200); HDL 39 mg/dL (35-55); LDL 41 mg/dL; TRIGLYCERIDES 83 mg/dL (39-160); VLDL 17 mg/dL
[2019-02-12 07:02] LABS: HEMOGLOBIN A1C 9.8 % (4.8-6.0)
--- NOTE | 2019-02-12 10:25 | PROGRESS NOTE ---
DATE: 02/12/2019 SUBJECTIVE: This patient is agitated and mumbles some unintelligible words. Did not answer any questions. OBJECTIVE: Vital Signs: Temperature 99 degrees, heart rate 92, respiratory rate 16, blood pressure 165/77, O2 saturation 93% on room air. General examination: This is a 63-year-old male, lying in bed in no acute distress. Cardiovascular exam: S1, S2 heard. No murmurs, gallops, or rubs. Regular rate and rhythm. Respiratory exam: Clear bilaterally to auscultation. No work of breathing or using accessory muscles. Abdomen: Soft, nontender to palpation. Bowel sounds present. No organomegaly. Extremities: No clubbing, cyanosis or edema. Peripheral pulses present in both legs. Neurological exam: The patient apparently has right- sided hemiparesis and does not follow any commands. ASSESSMENT AND PLAN: 1. Acute cerebrovascular accident with right-sided deficit. 2. Diabetes mellitus type 2. 3. Hypertension. 4. Altered mental status. 5. Substance abuse. At this point, we are going to do an MRI of the brain. Neurology has been consulted. We will do also an echocardiogram and we will go from there. At this point, we will continue with n.p.o. because patient looks like he is confused. It is not safe to bring him some food. We will continue to monitor this patient closely. cc: Tres Astorga MD
--- NOTE | 2019-02-12 12:46 | Diag Imaging Result Doc PS360 ---
EXAM: CT HEAD W/CONTRAST HISTORY: CVA TECHNIQUE: CT head with intravenous contrast COMPARISON: 02/11/2019 FINDINGS: There is a hypodense area in the posterior left temporal lobe and anterior left occipital lobe on the current exam. This is consistent with a subacute infarct. No parenchymal hemorrhage. No epidural or subdural hematoma. No subarachnoid hemorrhage. No hydrocephalus. No midline shift. No enhancing lesion on the post contrasted images. IMPRESSION: Recent left temporal occipital infarct This exam was performed using automated exposure control, adjustment of mA or kV according to patient size, and/or use of iterative reconstruction technique. Electronically signed by Fer Enriquez 02/12/2019 12:44 PM
--- NOTE | 2019-02-12 13:08 | CONSULTATION ---
DATE OF CONSULTATION: 02/12/2019 HISTORY OF PRESENT ILLNESS: Mr. Lopez is 63 years old and report from family is that he was found down at home midday yesterday, approximately 24 hours ago. He was reported to be awake and alert and unable to communicate well with speech. Not clear that he had any trouble understanding what was said to him. Daughter had visited with him in person the night before and reports he seemed well then. The next morning, family were unable to reach him by telephone. Family was concerned and went to check on him. They knocked on the door and did not get an answer. They tapped on his bedroom window and heard him calling for help. Eventually, the door was broken down and they entered the home and found the patient on the floor, apparently awake and alert, having some trouble with communicating with speech, unable to get up. Duration of time down is not certain. Family reports that he falls occasionally and that has been attributed to his diabetic peripheral neuropathy and chronic gait difficulty. Family reports he has been able to get up without assistance in the past. Family reports no prior history of stroke, serious head injury, seizure, other neurologic event. Family reports he uses ethanol occasionally but never or almost never to the point of intoxication. He was not taking his prescribed medicines for the last few months, which included medicines for diabetes mellitus and hypertension. He continued to smoke cigarettes. His urine drug screen was positive for amphetamine this admission and family cannot account for that finding. They believe that illicit drug use would not be impossible. Workup includes noncontrast CT of the head which shows some fairly minor micro ischemic change but nothing focal or acute and no bleeding. He has been afebrile. Systolic blood pressures have ranged 130s to 170s. Heart rate has ranged 80s to 100s. PHYSICAL EXAMINATION: On exam, Mr. Lopez is supine, restrained at the wrists, moving all limbs vigorously, but moving the left arm more purposefully than the right. He has left gaze preference, turns his head to the left, attempts to turn his body to the left repeatedly. He was not initially attentive to me, but with vigorous stimulation and talking to him loudly, he followed some simple commands including holding up 2 fingers and protruding his tongue. He raised his left arm and used it purposefully. He did not raise his right arm to command. He said a few words, but did not speak to my command. He did name objects or parts of objects. He provided powerful lens molder with the left hand and not with the right. There is brisk withdrawal with noxious stimulation over each foot. Plantar response is silent bilaterally. Reflexes are absent at the ankles bilaterally. He seemed incompletely attentive but not as responsive as expected to pinprick over the ankles. He did respond to pinprick over the thigh bilaterally and over the hand bilaterally. He was not attentive to proprioception testing. I did not test his gait. He has full lateral eye movement with left gaze preference as mentioned above. He consistently counted fingers correctly in the left visual field and consistently either did not count fingers or counted fingers incorrectly in the right visual field. Tongue protrudes slightly to the right. He has good facial motility bilaterally. Neck is supple. I do not find evidence of skull defect on head palpation. IMPRESSION: 1. Minimal right hemiparesis, possibly some expressive dysphasia, risk factors for cerebrovascular ischemic problems. I suspect he has had a dominant left hemisphere stroke, but that is not certain. Initial negative CT would not exclude acute ischemic infarction. 2. He has clinical evidence of peripheral neuropathy, presumed diabetic neuropathy. 3. Reported chronic gait difficulty. 4. Urine drug screen positive for amphetamine. This finding would often be spurious but might indicate substance ingestion to account for some of his restlessness and inattention. PLAN: I do not have urgent suggestion. Brain MRI and MRA are ordered, but I suspect he will not be still and if he is not sedated, those studies may not provide much helpful information. If MRI is not helpful, we might consider repeating CT scan with contrast (creatinine and 0.5 this morning) to see if we can identify evidence of left hemisphere infarction. We might consider EEG if he continues altered. I discussed at some length with family at the bedside the complicating features of peripheral neuropathy and his restlessness and global encephalopathy with question of substance ingestion. Blood sugars are moderately elevated but generally not in a range that would produce encephalopathy. I do not see anything else in the chemistry profile that likely would cause encephalopathy. Thanks for asking Neurology to see Mr. Lopez. cc: MD SERGIO Beltrán III
[2019-02-12] MEDS: HALDOL IV PRN (17:36)
[2019-02-12] MEDS: PROTONIX IV SCH (20:37)
[2019-02-13] MEDS: HALDOL IV PRN ×3 (01:16→22:38)
[2019-02-13] MEDS: HUMALOG SUBQ SCH ×4 (06:17→20:23)
[2019-02-13 06:42] LABS: BASO# 0.06 X1000 (0.0-0.2); BASO% 0.5 % (0.0-0.8); EOS# 0.16 X1000 (0.0-0.7); EOS% 1.3 % (0.0-10.0); HEMATOCRIT 42.7 % (42.0-52.0); HEMOGLOBIN 14.8 g/dL (14.0-18.0); IMM GRAN# 0.05 X1000 (0.0-0.04); IMM GRAN% 0.4 % (0.0-0.5); LYMPH# 2.59 X1000 (1.2-3.4); LYMPH% 20.3 % (20.5-51.1); MCH 30.9 PG (27-31); MCHC 34.7 g/dL (33-37); MCV 89.1 FL (81-99); MONO# 1.07 X1000 (0.11-0.59); MONO% 8.4 % (1.7-9.3); MPV 9.9 FL (7.4-10.4); NEUT# 8.86 X1000 (1.4-6.5); NEUT% 69.1 % (42.2-75.2); PLT 209 X1000 (130-400); RBC 4.79 XMIL (4.7-6.1); RDW 12.7 % (11.5-14.5); WBC 12.79 X1000 (4.8-10.8)
[2019-02-13 07:08] LABS: AGAP 20; ALB/GLOB RATIO 1.3; ALBUMIN 3.3 g/dL (3.5-5.0); ALKALINE PHOSPHATASE 65 U/L (32-122); BUN 13 mg/dL (8-22); CALCIUM 8.6 mg/dL (8.8-10.2); CHLORIDE 103 mmol/L (98-107); COSMO 281; CREATININE 0.6 mg/dL (0.7-1.2); ESTIMATED GFR > 60; GLUCOSE 121 mg/dL (70-104); GOT 21 U/L (10-34); GPT 16 U/L (10-44); POTASSIUM 3.3 mmol/L (3.5-5.1); SODIUM 140 mmol/L (136-145); TCO2 17 mmol/L (25-35); TOTAL BILIRUBIN 1.46 mg/dL (0.20-1.00); TOTAL PROTEIN 5.9 g/dL (6.3-8.3)
--- NOTE | 2019-02-13 07:10 | ECHO REPORT ---
ORDER DATE: 02/12/2019 MEASUREMENTS: 1. Septal thickness 1.1. 2. Left ventricular internal diameter in diastole 4.0. 3. Posterior wall thickness 1.1. 4. Left ventricular internal diameter in systole 3.1. 5. Aortic root 3.3. 6. Left atrium 2.8. SUMMARY: 1. Technically difficult study due to limited acoustic window quality. Intravenous echo contrast agent Optison was utilized to enhance endocardial definition. 2. Aortic valve is not well imaged but appears to be without evidence of structural abnormality. Aortic valve opening appears to be adequate. The peak gradient across the aortic valve is less than 10 mmHg. Mitral and tricuspid valves are without evidence of structural abnormality while pulmonic valve is not well demonstrated. The aortic root is normal in size. 3. Normal left ventricular chamber size with upper normal wall thickness demonstrated. The estimated left ventricular ejection fraction appears to be at least 65%. No regional wall motion abnormalities are evident. Doppler suggests grade 1 left ventricular diastolic dysfunction. The left atrium, right atrium, right ventricle are normal size with normal right ventricular systolic function. 4. No pericardial effusion. 5. Inferior vena cava not well demonstrated. CONCLUSIONS: 1. Technically difficult study. 2. No significant valvular abnormality demonstrated. 3. Normal left ventricular systolic function without wall motion abnormality evident. 4. Grade 1 left ventricular diastolic dysfunction suggested. cc: MD Jacy Pena CRNP
--- NOTE | 2019-02-13 10:46 | PROGRESS NOTE ---
DATE: 02/13/2019 SUBJECTIVE: As per family who is at bedside, this patient is a little more awake sometimes. He recognizes them. He does not follow commands to me and is a little bit restless today to me, too, as well. OBJECTIVE: Vital Signs: Temperature 98.3 degrees, heart rate 95, respiratory rate 17, blood pressure 131/74, O2 saturation 94% on room air. General: This is a 63-year-old male, lying in bed, in no acute distress. Cardiovascular: S1, S2 heard. No murmurs, gallops, or rubs. Regular rate and rhythm. Respiratory: Clear bilaterally to auscultation. No work of breathing or using accessory muscles. Abdomen: Soft, nontender to palpation. Bowel sounds present. No organomegaly. Extremities: No clubbing, cyanosis, or edema. Peripheral pulses present in both legs. Neurological: Patient apparently has a right-sided hemiparesis. Does not follow any commands. Does not talk. I do not know if he has expressive aphasia or not. LABORATORY DATA: Reviewed. CT scan from yesterday showed recent left temporooccipital infarct. ASSESSMENT AND PLAN: 1. Acute left temporooccipital infarct, aware. At this point, the patient continues to be confused and restless. Will provide medications for that. Considering that he is not able to be feed by mouth, we are going to start Clinimix lipids and will go from there. 2. Diabetes mellitus type 2. Will continue with sliding scale insulin and Accu-Chek before meals and also at bedtime. 3. Hypertension. Will allow permissive hypertension for this patient. Will continue to monitor this patient closely. 4. Altered mental status. I think this is secondary to stroke. Will continue to monitor. 5. Substance abuse, aware. 6. Disposition. At this point, will do an MRI of the brain and MRA of the brain on Friday. Because he is a little bit agitated and restless, will hold physical therapy over the weekend. Will restart on Friday. Will put Cloth Shrinking Machine Operator Helper consult. cc: Tres Astorga MD
[2019-02-13] MEDS: CLINIMIX E 4.25%-5% SOLUTION 1,000 ML IV SCH ×2 (11:49→20:23)
[2019-02-13] MEDS: ATIVAN IV PRN ×2 (13:54→21:36)
[2019-02-13] MEDS: PROTONIX IV SCH (20:24)
[2019-02-14] MEDS: ATIVAN IV PRN ×2 (02:38→18:59)
[2019-02-14] MEDS: HALDOL IV PRN ×2 (04:24→23:13)
[2019-02-14] MEDS: CLINIMIX E 4.25%-5% SOLUTION 1,000 ML IV SCH ×3 (05:55→16:05)
[2019-02-14] MEDS: HUMALOG SUBQ SCH ×4 (06:17→21:30)
[2019-02-14 06:34] LABS: BASO# 0.06 X1000 (0.0-0.2); BASO% 0.4 % (0.0-0.8); EOS% 0.7 % (0.0-10.0); HEMATOCRIT 45.6 % (42.0-52.0); HEMOGLOBIN 15.8 g/dL (14.0-18.0); IMM GRAN# 0.07 X1000 (0.0-0.04); IMM GRAN% 0.5 % (0.0-0.5); LYMPH# 2.11 X1000 (1.2-3.4); LYMPH% 15.1 % (20.5-51.1); MCH 30.9 PG (27-31); MCHC 34.6 g/dL (33-37); MCV 89.1 FL (81-99); MONO# 1.57 X1000 (0.11-0.59); MONO% 11.3 % (1.7-9.3); MPV 10.1 FL (7.4-10.4); NEUT# 10.03 X1000 (1.4-6.5); PLT 238 X1000 (130-400); RBC 5.12 XMIL (4.7-6.1); RDW 12.9 % (11.5-14.5); WBC 13.94 X1000 (4.8-10.8)
[2019-02-14 06:56] LABS: AGAP 22; ALB/GLOB RATIO 1.2; ALBUMIN 3.6 g/dL (3.5-5.0); ALKALINE PHOSPHATASE 69 U/L (32-122); BUN 21 mg/dL (8-22); CALCIUM 8.9 mg/dL (8.8-10.2); CHLORIDE 99 mmol/L (98-107); COSMO 283; CREATININE 0.6 mg/dL (0.7-1.2); ESTIMATED GFR > 60; GLUCOSE 278 mg/dL (70-104); GOT 24 U/L (10-34); GPT 16 U/L (10-44); POTASSIUM 4.1 mmol/L (3.5-5.1); SODIUM 135 mmol/L (136-145); TCO2 14 mmol/L (25-35); TOTAL BILIRUBIN 1.73 mg/dL (0.20-1.00); TOTAL PROTEIN 6.7 g/dL (6.3-8.3)
--- NOTE | 2019-02-14 11:26 | Carotid Study ---
DATE: 02/13/2019 SUEDE BRUSHER: Mike. REQUESTING PHYSICIAN: Gio. INDICATIONS: CVA. FINDINGS: Bilateral carotid arteries were visualized along their course. There was a calcified plaque noted in the right carotid bulb that extends to the proximal internal carotid artery that causes elevation of velocities that would correlate to a 40 to 59 percent stenosis on the left. There are no significant atherosclerotic changes. Vertebrals were antegrade bilaterally. Millinery Teacher noted this was a limited scan due to patient cooperation. IMPRESSION: Moderate degree of stenosis in the right carotid artery system with no significant atherosclerotic changes noted on the left. cc: MD Jacy Perkins CRNP
[2019-02-14] MEDS: ASPIRIN EC PO SCH (13:32)
--- NOTE | 2019-02-14 14:08 | PROGRESS NOTE ---
DATE: 02/14/2019 SUBJECTIVE: The patient has no major complaints. He is still very altered. OBJECTIVE: Vital Signs: Blood pressure 150/74, heart rate 105, respiratory rate 17, temperature 98.8 degrees. Cardiovascular: Regular rate and rhythm. Pulmonary: Bilateral breath sounds clear to auscultation. Gastrointestinal: Soft, nontender, nondistended. Bowel sounds are positive. Neurologic: I really could not get him to participate in much neurologically but according the nurse, he does open his eyes and try to interact, those kinds of things. Does say his name. I really could get him to cooperate with anything very much at all. LABORATORY DATA: White count is 13, hemoglobin and hematocrit are 15 and 45, platelets 238,000. Basic was normal. Sugar was 278 with an A1c of 9.8. PROBLEM LIST: 1. Acute left temporooccipital infarct. We will continue supportive measures. Not really sure what other workup we have. He has got an MRI planned and I plan for a CT angiogram of his head. We do need to go ahead and start aspirin and Lipitor if we can and work on blood sugar and eventually blood pressure. Nurse said he tolerated sips without difficulty. 2. Diabetes. Not controlled but we will continue to follow closely. He is on sliding scale insulin. We may have to initiate some long-term medications such as Lantus. 3. History of alcohol abuse. Aware. We are going to continue to monitor. That may be compounding some of his issues. DISPOSITION: Pending his confusion and status otherwise and his recovery, we will continue to follow. PT and OT will be consulted as well as Speech and we will continue to monitor. cc: Chauncey Jenkins MD
[2019-02-14] MEDS: PROTONIX IV SCH (20:39)
[2019-02-14] MEDS: LIPITOR PO SCH (20:39)
--- NOTE | 2019-02-14 20:56 | Diag Imaging Result Doc PS360 ---
EXAM: CT ANGIOGRAM HEAD/NECK HISTORY: cva TECHNIQUE: 1. CT angiogram head with intravenous contrast. Arteriogram protocol with MIP images. 2. CT angiogram neck with intravenous contrast. Arterial protocol with MIP images. COMPARISON: None. FINDINGS: Neck: No occlusion or stenosis within either common carotid artery. Prominent atherosclerosis within each carotid bulb. Narrowing on the right between 70 and 90%. Stenosis in the left bulb a 50%. The proximal vertebral arteries are obscured. The mid and distal vertebral arteries are normal. Head: Atherosclerosis within each distal internal carotid artery with narrowing of approximately 40%. Normal basilar artery. There is filling of the anterior cerebral arteries, middle cerebral arteries, and posterior cerebral arteries. There is a posterior communicating artery on the right. No aneurysm. IMPRESSION: Stenosis within each proximal internal carotid artery. This exam was performed using automated exposure control, adjustment of mA or kV according to patient size, and/or use of iterative reconstruction technique. Electronically signed by Fer Enriquez 02/14/2019 8:54 PM
[2019-02-15] MEDS: CLINIMIX E 4.25%-5% SOLUTION 1,000 ML IV SCH ×2 (02:11→12:16)
[2019-02-15] MEDS: LOVENOX SUBQ SCH (05:33)
[2019-02-15] MEDS: HUMALOG SUBQ SCH ×4 (06:17→21:02)
[2019-02-15 06:18] LABS: BASO# 0.09 X1000 (0.0-0.2); BASO% 0.8 % (0.0-0.8); EOS# 0.51 X1000 (0.0-0.7); EOS% 4.3 % (0.0-10.0); HEMATOCRIT 45.3 % (42.0-52.0); IMM GRAN# 0.07 X1000 (0.0-0.04); IMM GRAN% 0.6 % (0.0-0.5); LYMPH# 2.54 X1000 (1.2-3.4); LYMPH% 21.3 % (20.5-51.1); MCH 31.1 PG (27-31); MCHC 35.3 g/dL (33-37); MONO# 1.22 X1000 (0.11-0.59); MONO% 10.2 % (1.7-9.3); MPV 9.8 FL (7.4-10.4); NEUT# 7.52 X1000 (1.4-6.5); NEUT% 62.8 % (42.2-75.2); PLT 206 X1000 (130-400); RBC 5.15 XMIL (4.7-6.1); RDW 12.7 % (11.5-14.5); WBC 11.95 X1000 (4.8-10.8)
[2019-02-15 06:35] LABS: AGAP 17; BUN 17 mg/dL (8-22); CALCIUM 9.2 mg/dL (8.8-10.2); CHLORIDE 101 mmol/L (98-107); COSMO 282; CREATININE 0.4 mg/dL (0.7-1.2); ESTIMATED GFR > 60; GLUCOSE 226 mg/dL (70-104); POTASSIUM 4.2 mmol/L (3.5-5.1); SODIUM 137 mmol/L (136-145); TCO2 19 mmol/L (25-35)
[2019-02-15] MEDS: ASPIRIN EC PO SCH ×2 (07:32→08:09)
[2019-02-15] MEDS: ATIVAN IV PRN ×2 (09:19→17:22)
--- NOTE | 2019-02-15 10:14 | Diag Imaging Result Doc PS360 ---
MRI BRAIN W/O CONTRAST - 02/15/2019 INDICATION: CVA COMPARISON: Head CT 02/12/2019 FINDINGS: There is a large area of restricted diffusion mainly involving the left inferior, posterior cerebral hemisphere. This involves some of the left thalamus, the periventricular white matter, the inferior temporal and occipital lobes, and the corpus callosum on the left side. This is all probably mostly in the posterior cerebral artery territory. In addition, there are other small areas of restricted diffusion in the posterior right cerebral hemisphere and also in the left cerebellar hemisphere. No midline shift. No intracranial hemorrhage. There is moderate to advanced periventricular white matter gliosis compatible with chronic microvascular ischemia. IMPRESSION: 1. Large recent stroke in the left posterior cerebral artery territory. 2. Tiny recent strokes in the posterior right cerebral hemisphere and left cerebellar hemisphere. Electronically signed by Jn Richardson 02/15/2019 10:12 AM
--- NOTE | 2019-02-15 13:44 | PROGRESS NOTE ---
DATE: 02/15/2019 SUBJECTIVE: The patient resting in bed. He is able to follow simple commands. OBJECTIVE: Vital signs: Vital signs are as follows: Temperature 97.3 degrees, pulse is 82, respiratory rate 16, blood pressure is 151/84, oxygen saturation 99%. HEENT: Atraumatic, normocephalic. Cardiovascular exam: S1, S2. Respiratory system: Has evidence of good air entry bilaterally. Abdomen: Soft, nontender. No masses felt. Extremities: No evidence of edema. Central nervous system: Patient is difficult to really assess in light of his mental state. LABS: WBC 11.95, hematocrit 45.3 with a platelet count of 206. Sodium is 137, potassium 4.2, chloride is 101, bicarbonate 19. BUN is 17, creatinine 0.4. Urine drug screen positive for amphetamine. X-RAYS: MRI of the brain shows a large recent stroke in the left posterior cerebral artery territory. Tiny recent stroke in the posterior right cerebral hemisphere, as well as the left cerebral hemisphere. ASSESSMENT AND PLAN: 1. Acute cerebrovascular accident. MRI of the brain shows a large recent stroke in the left posterior cerebral artery territory. Tiny recent strokes in the posterior cerebral hemisphere, and also left cerebral hemisphere. Continue patient on aspirin, as well as statin. Allow for permissive hypertension. Continue physical therapy. Neurology is on board. 2. Diabetes mellitus. Continue blood sugar medications, as well as sliding scale insulin. 3. Hypertension, although permissive hypertension. 4. Encephalopathy, probably multifactorial from substance abuse, as well as recent stroke. Continue to follow up on patient's neurologic status. 5. Substance abuse. Aware. 6. Disposition: The patient will benefit from [facility] facility if he does qualify. Otherwise, he may have to go home with [facility]. cc: Gabino Roach MD
--- NOTE | 2019-02-15 13:48 | PROGRESS NOTE ---
DATE: 02/15/2019 ADDENDUM: Review of CT scan of the neck done on 02/14/2019 indicates a narrowing of the right carotid bulb to about 70 to 90 percent. Will consult with the surgical team. cc: Gabino Roach MD
--- NOTE | 2019-02-15 16:03 | PROGRESS NOTE ---
DATE: 02/15/2019 SUBJECTIVE: Sister at the bedside reports Mr. Lopez has been more alert. She reports she has had a little bit of conversation with him and that at least some of his words have been appropriate and sensible. She has some concerns about the appearance of his feet. Brain MRI shows large left posterior cerebral infarction with features typical of recent ischemic event. There are some much smaller areas of restricted diffusion in the posterior right hemisphere and in the left cerebellar hemisphere. He continues afebrile. Heart rate has been 70s to 80s for the last 24 hours. Systolic blood pressures have ranged 110s to 160s over the last few days. Lab shows WBC 11,950, moderately elevated blood sugars, nothing else remarkable. OBJECTIVE: On exam, he was initially asleep, easily waked and remained alert and attentive during my time at the bedside. He followed simple commands including holding up 2 fingers, protruding his tongue, opening and closing eyes. He spoke some words that I could understand and said some other words that I could not discern. He consistently counted fingers correctly in his left visual field and consistently did not count fingers in the right visual field. He used his left arm and leg purposefully and skillfully. He did not use his right arm purposefully or to command. Both feet have the appearance of chronic peripheral neuropathy with moderately diminished muscle bulk. There may be evidence of chronic ischemia, but I do not see evidence of acute ischemic change. IMPRESSIONS: 1. Dominant left hemisphere infarction with right hemiparesis, much improved dysphasia, persistent right hemianopia. 2. MRI shows scattered recent infarctions raising question of cardiac source of embolus. CT angiogram showed right internal carotid stenosis in the neck. Carotid ultrasound also showed mostly right-sided stenosis in the neck. Transthoracic echocardiogram 3 days ago was reported technically difficult but did not show definite source of embolus. 3. Clinical evidence of peripheral neuropathy, presumed diabetic neuropathy. I do not think this needs urgent attention. PLAN: I do not have any urgent suggestion from a Neurology standpoint. Transesophageal echocardiogram might be considered electively. Through sister, I encouraged family to continue support and to provide him with encouragement to take his medicines and to treat his risk factors aggressively. Thanks for asking Neurology to see Mr. Lopez. cc: MD SERGIO Beltrán III
[2019-02-15] MEDS: LIPITOR PO SCH (21:02)
--- NOTE | 2019-02-15 21:54 | GENERAL SURGERY CONSULTATION ---
DATE: 02/15/2019 REQUESTING PHYSICIAN: Dr. Roach. REASON FOR CONSULTATION: Right carotid artery stenosis with recent CVA. HISTORY OF PRESENT ILLNESS: 63-year-old gentleman with prior history of COPD, diabetes, hypertension, who presented to the emergency department with stroke-like symptoms. He was found on imaging to have a large recent left posterior cerebellar artery infarct with tiny recent strokes in the posterior right cerebellar hemisphere and left cerebellar hemisphere. He had a carotid duplex that did not show terrible stenosis on the left, and only 40 to 59 percent on the right. I was asked to weigh an opinion. The patient is not very cooperative at this point to get a full history. Reviewed history from other physicians. PAST MEDICAL HISTORY: Includes: 1. Diabetes mellitus. 2. Hypertension. 3. COPD. PAST SURGICAL HISTORY: Includes cholecystectomy. SOCIAL HISTORY: Current smoker. ALLERGIES: Tetanus vaccine. HOME MEDICATIONS: MAR reviewed. FAMILY HISTORY: Unable to obtain secondary to patient's mental status. REVIEW OF SYSTEMS: Unable to obtain secondary to patient's mental status. PHYSICAL EXAMINATION: Vital Signs: Patient is currently afebrile. His vital signs are stable. General: No acute distress. male looks stated age. HEENT: Normocephalic, atraumatic. Pupils equal, round, reactive to light. Mucous membranes moist. Oropharynx benign. Neck: Supple. Trachea midline. Cardiovascular: Regular rate and rhythm. Lungs: Grossly clear. Abdomen: Soft, nontender, nondistended. Extremities: Residual defects noted. Vascular: All extremities perfused. Neurologic: Consistent with a recent stroke. Skin: No signs of jaundice. LABORATORY: White blood cell count 11, hematocrit 45, platelet count 206,000. Remainder of labs reviewed. IMAGING: Reviewed and noted above. ASSESSMENT AND PLAN: A 63-year-old gentleman with a recent stroke. At this time, carotid ultrasound only seems to suggest stenosis of 40 to 59 percent on the right. CTA may suggest higher degree of blockage that we could not see on ultrasound. At this point, given his recent strokes, I would recommend just conservative management and followup in the near future with repeat ultrasound. Will be available if needed. cc: Rusty Burnett MD
[2019-02-16] MEDS: PROTONIX IV SCH ×2 (00:11→21:05)
[2019-02-16] MEDS: CLINIMIX E 4.25%-5% SOLUTION 1,000 ML IV SCH ×2 (01:21→11:41)
[2019-02-16] MEDS: ATIVAN IV PRN ×2 (01:38→16:39)
[2019-02-16] MEDS: LOVENOX SUBQ SCH (06:45)
[2019-02-16] MEDS: HUMALOG SUBQ SCH ×4 (06:46→21:06)
[2019-02-16] MEDS: ASPIRIN EC PO SCH (10:20)
--- NOTE | 2019-02-16 13:51 | PROGRESS NOTE ---
DATE: 02/16/2019 SUBJECTIVE: Mr. Lopez was admitted on 02/11/2019 and came in with a stroke. He is a patient of Dr. Kvng Morocho. A 63 year old with history of COPD, diabetes mellitus type 2, hypertension, who presented to the emergency room per EMS. At that time, the patient was sedated on Ativan after being combative. There were no family members, so information was taken from the chart. Mr. Lopez's family reported seeing him normal the night before, did not answer multiple calls. They called for a welfare check. On EMS arrival, they had to break the door down to get into the house, found the patient lying on the floor naked. He has slurred speech, right-sided deficit, only knew his name. The daughter did report that he had diabetes and hypertension. He quit taking his medication because of lack of insurance. CT of the head revealed negative brain CT without contrast. PAST MEDICAL HISTORY: Diabetes mellitus, hypertension, and COPD. OBJECTIVE: Today, he is in 4-point restraints. He was talking to me, seemed to be calm, ate most of his lunch, so he is swallowing and eating okay. Temperature is 97.7, pulse 90, respirations 15, blood pressure 175/70. Last several blood pressures were 131/54, 149/75, 141/76, 175/77. Pupils are equal and round. Lungs are clear in all lung hairston. Cardiovascular: Regular rate and rhythm without murmur or S3. DIAGNOSTIC DATA: Blood sugars were 235, 200, 222 and 217. ASSESSMENT AND PLAN: 1. A 63 year old with recent stroke. At this time, carotid ultrasound only seems to suggest stenosis 40% to 59% on the right. CTA may suggest a higher degree of blockage, so we will review it. Given his recent strokes, I recommend conservative management, follow up in the near future with repeat ultrasound. 2. Dominant left hemisphere infarction with right hemiparesis, much improved dysphagia, persistent right hemianopia. He still has agitation and can be combative and at risk to pull out his IV. He is in 4-point restraints. There is clinical evidence of peripheral neuropathy presumed from diabetes mellitus. MRI shows scattered recent infarctions, raising the question of cardiac source emboli. CT angiogram shows right internal carotid stenosis at the neck. Carotid ultrasound also shows mostly right-sided stenosis in the neck. Transthoracic echocardiogram 4 days ago technically difficult but did not show any definite source of mural thrombus. Continue present orders. Lipitor 40 mg nightly at bedtime, aspirin 81 mg a day, Clinimix 100 mL an hour, Protonix 40 mg IV q.24 hours. Ask Social Service to help us evaluate and look for possible discharge plans. 3. Review of labs today: He did not have any new labs. We will check electrolytes and CBC. Blood sugars appear well controlled. cc: Yossi Barlow MD
[2019-02-16] MEDS: M.V.I.-12 10 ML, FOLIC ACID 1 MG, MAGNESIUM SULFATE 1 GM, THIAMINE 100 MG in NS 1,000 ML IV SCH (14:30)
--- NOTE | 2019-02-16 14:52 | PROGRESS NOTE ---
DATE: 02/16/2019 SUBJECTIVE: Mr. Lopez continues to have some periods of restlessness. Daughter at the bedside today confirms ethanol intake is what was reported initially, several beers in 1 night infrequently. She believes he does not use ethanol more regularly or more frequently or to a greater degree than what she and ex had reported earlier. OBJECTIVE: On exam, he is awake, alert, attentive, restless. He followed simple commands consistently. He moved his right arm to command today, which is an improvement. He continues to have evidence of right hemianopia. IMPRESSION: Dominant left hemisphere infarction, mostly posterior with improved language function, improved right hemiparesis, persistent right hemianopia. I discussed with patient and daughter the need for him to be aggressive with management of his risk factors. He has moderate carotid stenosis, and I agree with Vascular Surgery recommendation to follow this without urgent intervention. Also, as mentioned in prior note, transesophageal echocardiogram could be considered electively in light of the MRI evidence of acute infarction in several vascular territories. Thanks for asking Neurology to see Mr. Lopez. cc: MD SERGIO Beltrán III
[2019-02-16] MEDS: LIPITOR PO SCH ×2 (21:05→21:16)
[2019-02-17] MEDS: ATIVAN IV PRN ×2 (02:42→21:15)
[2019-02-17] MEDS: CLINIMIX E 4.25%-5% SOLUTION 1,000 ML IV SCH ×3 (04:14→20:41)
[2019-02-17] MEDS: HUMALOG SUBQ SCH ×4 (06:41→21:16)
[2019-02-17] MEDS: LOVENOX SUBQ SCH (06:41)
--- NOTE | 2019-02-17 09:44 | PROGRESS NOTE ---
DATE: 02/17/2019 SUBJECTIVE: Mr. Lopez was still in four-point restraint. He was sleeping. He was easy to arouse but goes back to sleep very quickly. OBJECTIVE: Temperature 98.3 degrees, pulse 89, respirations 16, blood pressure 141/106. Last several blood pressures 149/75, 141/76, 140/83, 127/105. His pupils are equal. No distended neck veins. CVP less than 6 cm. Lungs are clear in all lung hairston. Cardiovascular Examination: Regular rhythm and rate without murmur or S3. Abdomen is soft, nondistended. No pedal edema. Urine output was 4200 mL. ASSESSMENT AND PLAN: 1. A 63-year-old with recent stroke. At this time, carotid ultrasound only seems to suggest 40 to 59 percent on the right. CAT scan, CT angiogram suggests a higher degree blockage. At this point, conservative management, hopefully continue to improve. 2. Delirium and confusion. He had a dominant left hemisphere infarction with right hemiparesis. His speech is better. He has a persistent right hemianopia and still has episodes of delirium and agitation requiring four-point restraint. 3. Review of his lab from the 2nd, CBC and blood sugars. He has diabetes mellitus type 2. Blood sugars appear to be under good control. REVIEW OF HIS MEDICATIONS: He is getting Clinimix for nutrition at 100 mL an hour, aspirin 81 mg a day, multivitamin daily, Lipitor 40 mg a day. Continue physical therapy and speech therapy, and see if we can find a place to go for rehab. Dr. Bland is following. Dominant left hemisphere infarction, mostly posterior. Improved language function, improved right hemiparesis, persistent right hemianopia. cc: Yossi Barlow MD
[2019-02-17] MEDS: M.V.I.-12 10 ML, FOLIC ACID 1 MG, MAGNESIUM SULFATE 1 GM, THIAMINE 100 MG in NS 1,000 ML IV SCH (09:54)
[2019-02-17] MEDS: ASPIRIN EC PO SCH (09:54)
--- NOTE | 2019-02-17 14:55 | PROGRESS NOTE ---
DATE: 02/17/2019 LOCATION: Room 200. SUBJECTIVE: Family at the bedside reports Mr. Lopez is worn out after therapy and a poor night's sleep. OBJECTIVE: He looks about the same clinically. He is less restless, appears more calm today. He moved his right arm briefly, but not vigorously and not consistently to command. He was not quite as attentive today as yesterday. I encouraged him to quit smoking and to be aggressive with management of his cerebrovascular risk factors. I do not have any new suggestion from Neurology standpoint today. Thank you for asking us to see Mr. Lopez. cc: MD SERGIO Beltrán III
[2019-02-17] MEDS: PROTONIX IV SCH (21:15)
[2019-02-17] MEDS: LIPITOR PO SCH (21:16)
[2019-02-18] MEDS: ATIVAN IV PRN ×3 (04:17→18:01)
[2019-02-18] MEDS: HUMALOG SUBQ SCH ×4 (06:53→20:23)
[2019-02-18] MEDS: CLINIMIX E 4.25%-5% SOLUTION 1,000 ML IV SCH ×2 (06:53→16:43)
[2019-02-18] MEDS: LOVENOX SUBQ SCH (06:53)
[2019-02-18] MEDS: ASPIRIN EC PO SCH (08:41)
[2019-02-18] MEDS: M.V.I.-12 10 ML, FOLIC ACID 1 MG, MAGNESIUM SULFATE 1 GM, THIAMINE 100 MG in NS 1,000 ML IV SCH (08:41)
--- NOTE | 2019-02-18 12:34 | PROGRESS NOTE ---
DATE: 02/18/2019 SUBJECTIVE: Mr. Lopez was in 4-point restraint. He is sleeping at the present time, breathing comfortably. OBJECTIVE: Vital Signs: Temperature is 98.1 degrees, pulse 80, respirations 18, blood pressure 148/96. HEENT: Pupils are equal and round. Lungs: Clear in all lung hairston. Cardiovascular: Regular rhythm and rate without murmur or S3. Abdomen: Soft. Skin: Warm and dry. Urine output is 5300 mL. Blood sugar 211, 168, 251, 159. ASSESSMENT AND PLAN: 1. He looks about the same clinically, less restless, seems to be a little calmer, still requiring restraints. Dr. Bland is following. He did move his right arm briefly, but not vigorously. Have encouraged him to quit smoking, and aggressive management of his cerebrovascular risk factors. 2. Recent stroke. Carotid ultrasound suggested 40% to 59% stenosis on the right. CT scan suggested maybe a higher degree. Follow as an outpatient on whether endarterectomy would be beneficial. 3. Delirium and confusion, which is I think improving. He has dominant left hemisphere infarction with right hemiparesis. 4. Diabetes mellitus type 2. Apparently, he is eating okay, and his sugars appear to be acceptable. Lab reviewed. Blood sugar is 167, 204, 251, and 159. He is on Lipitor 40 mg at bedtime, aspirin 81 mg a day, Protonix 40 mg intravenously every 24 hours. He is getting Lovenox 40 mg subcutaneously daily for deep venous thrombosis prophylaxis. His blood pressures look acceptable. cc: Yossi Barlow MD
[2019-02-18] MEDS: PROTONIX IV SCH (20:23)
[2019-02-18] MEDS: LIPITOR PO SCH (20:24)
[2019-02-19] MEDS: ATIVAN IV PRN (00:06)
[2019-02-19] MEDS: CLINIMIX E 4.25%-5% SOLUTION 1,000 ML IV SCH ×3 (01:45→22:49)
[2019-02-19] MEDS: HALDOL IV PRN ×2 (02:15→20:04)
[2019-02-19] MEDS: LOVENOX SUBQ SCH (06:18)
[2019-02-19] MEDS: HUMALOG SUBQ SCH ×4 (06:19→20:53)
[2019-02-19] MEDS: M.V.I.-12 10 ML, FOLIC ACID 1 MG, MAGNESIUM SULFATE 1 GM, THIAMINE 100 MG in NS 1,000 ML IV SCH (09:39)
[2019-02-19] MEDS: ASPIRIN EC PO SCH (09:39)
--- NOTE | 2019-02-19 14:10 | PROGRESS NOTE ---
DATE: 02/19/2019 SUBJECTIVE: Mr. Lopez is still in 4-point restraint. He is oriented to person, did not know he is at [facility] or the month or the year, but seems to be a little more with the program and less confused. OBJECTIVE: Vital signs: Temperature 97.9 degrees, pulse 89, respirations 17, blood pressure 155/85. HEENT: Pupils are equal and round. Lungs: Clear in all lung hairston. Cardiovascular: Regular rhythm and rate without murmur or S3. Urine output is 4300 mL. ASSESSMENT AND PLAN: 1. He looks a little less restless, still requires 4-point restraint. He seems to be more cooperative, still confused. 2. Recent stroke. Carotid ultrasounds shows 40 to 60 percent stenosis on the right. CT scan may suggest a higher degree. Wait as an outpatient and re-evaluate whether he would benefit from endarterectomy. 3. Delirium and confusion which is still present but it seems to be improving. 4. Diabetes mellitus type 2. Aware. REVIEW OF ORDERS: Looking at his medications, he is on Clinimix 100 mL an hour, gets Ativan 1 mg IV q.4 hours p.r.n. He is on Protonix 40 mg daily. REVIEW OF LABS: His white blood cell count and electrolytes unremarkable. Blood sugars 207, 198, 203, 226. cc: Yossi Barlow MD
[2019-02-19] MEDS: THIAMINE 100 MG in NS 50 ML IV SCH (16:25)
[2019-02-19] MEDS: LIPITOR PO SCH (20:04)
[2019-02-19] MEDS: PROTONIX IV SCH (20:04)
--- NOTE | 2019-02-19 21:05 | PROGRESS NOTE ---
DATE: 02/19/2019 SUBJECTIVE: Mr. Lopez asked to be discharged, and short of that he asked to have his restraints removed. He did not have any other complaint. OBJECTIVE: Systolic blood pressures have been stable, 120s to 160s in the last few days. He has been afebrile. Chemistry shows moderately elevated blood sugars but nothing else remarkable and nothing that generally would be associated with encephalopathy. WBC count has been trending downward. EXAM: Mr. Lopez is awake, alert, attentive, calm. He spoke much more clearly to me today. He was not able to identify this as a hospital or to name the facility. He did not name the day of the week or the month. He did not name the President. He has right hemianopia as before. He has good power in the arms. Facial motility is symmetric. He did well on bedside testing of repeating, naming, comprehension and fluency. I did not test his gait. IMPRESSION AND PLAN: Dominant left hemisphere infarction, mostly posterior, with persistent right hemianopia. I believe his language and motor deficits are much improved. I am concerned about his apparent delirium. I wonder if he has a baseline cognitive impairment syndrome which family has not recognized. I wonder if there might have been ethanol use exceeding what family knew or if there has been other substance use. His agitation is less and attention is better maintained today than a few days ago. From stroke standpoint, he continues stable and improving. No urgent suggestion from Neurology. Thanks for asking us to see Mr. Lopez. cc: MD SERGIO Beltrán III
[2019-02-20] MEDS: HUMALOG SUBQ SCH ×4 (06:08→20:19)
[2019-02-20] MEDS: LOVENOX SUBQ SCH (06:08)
[2019-02-20] MEDS: M.V.I.-12 10 ML, FOLIC ACID 1 MG, MAGNESIUM SULFATE 1 GM, THIAMINE 100 MG in NS 1,000 ML IV SCH (09:22)
[2019-02-20] MEDS: CLINIMIX E 4.25%-5% SOLUTION 1,000 ML IV SCH ×3 (09:24→17:08)
[2019-02-20] MEDS: ASPIRIN EC PO SCH (09:24)
--- NOTE | 2019-02-20 09:47 | PROGRESS NOTE ---
DATE: 02/20/2019 SUBJECTIVE: Mr. Lopez is awake and actually alert. He is kind of oriented. It is the 1st time that I have seen him. He had some questions why he was here and what was going on, but is encouraging. He is still requiring four-point restraint. He has a Sarmiento catheter in. OBJECTIVE: Vital Signs: Temperature 97.4 degrees, pulse 94, respirations 17, blood pressure 156/86. Eyes: Pupils are equal and round. Lungs: Lungs are clear in all lung hairston. Cardiovascular exam: Regular rhythm and rate without murmur or S3. Abdomen: Abdomen is soft. Skin: Skin is warm and dry. : Urine output is 4900 mL. Blood sugars 224, 176, 227, 198. ASSESSMENT AND PLAN: 1. He is much more oriented, looks better, less confused. 2. Recent stroke. Carotid ultrasound showed 46% stenosis on the right. CT scan suggested a little higher degree. 3. Delirium and confusion, which is improved. 4. Diabetes mellitus type 2. Sugars under better control. His electrolytes look good. Review of his orders: I do not see any change right now. He is getting thiamine 100 mg IV daily. He is getting Clinimix 100 mL. See how he does with swallowing and hopefully he can start getting p.o. intake. cc: Yossi Barlow MD
[2019-02-20] MEDS: CYANOCOBALAMIN IM SCH (11:24)
[2019-02-20] MEDS: THIAMINE 100 MG in NS 50 ML IV SCH (14:40)
[2019-02-20] MEDS: LIPITOR PO SCH (20:19)
[2019-02-20] MEDS: PROTONIX IV SCH (20:19)
[2019-02-21] MEDS: ATIVAN IV PRN (02:56)
[2019-02-21] MEDS: CLINIMIX E 4.25%-5% SOLUTION 1,000 ML IV SCH ×2 (02:59→22:13)
[2019-02-21] MEDS: HALDOL IV PRN (05:41)
[2019-02-21] MEDS: HUMALOG SUBQ SCH ×4 (06:19→22:13)
[2019-02-21] MEDS: LOVENOX SUBQ SCH (06:20)
[2019-02-21] MEDS: M.V.I.-12 10 ML, FOLIC ACID 1 MG, MAGNESIUM SULFATE 1 GM, THIAMINE 100 MG in NS 1,000 ML IV SCH (08:30)
[2019-02-21] MEDS: CYANOCOBALAMIN IM SCH (08:31)
[2019-02-21] MEDS: ASPIRIN EC PO SCH (08:31)
--- NOTE | 2019-02-21 09:40 | PROGRESS NOTE ---
DATE: 02/21/2019 SUBJECTIVE: Mr. Lopez was resting and sleeping comfortably. He did eat a good portion of his breakfast. He is appears more comfortable. He is out of 4 point restraints. OBJECTIVE: Vital signs: Temp 97.6 degrees, pulse 84, respirations 20, blood pressure 168/75. HEENT: Pupils are equal and round. Lungs: Are clear in all lung hairston. Cardiovascular: Regular rate without murmur or S3. URINE OUTPUT: Urine output is 9000 mL. LABORATORY: Blood sugars 198, 219, 202. ASSESSMENT AND PLAN: 1. Much less confused, better oriented, cooperative. 2. Recent stroke. Neurologically, appears to have improved some. 3. Delirium and confusion. Definitely improved. 4. Diabetes mellitus type 2. Sugars appear under good control. 5. Continue his physical therapy. We will get Occupational therapy involved as well. MEDICATIONS: He is on Clinimix at 100 mL an hour. I think we can stop that pretty soon if his p.o. intake continues to improve. He is on thiamine 100 mg IV q. 24 hours, aspirin 81 mg a day, Lipitor 40 mg at bedtime. cc: Yossi Barlow MD
[2019-02-21] MEDS: THIAMINE 100 MG in NS 50 ML IV SCH (15:29)
[2019-02-21] MEDS: PROTONIX IV SCH (22:12)
[2019-02-21] MEDS: LIPITOR PO SCH (22:13)
[2019-02-22] MEDS: CLINIMIX E 4.25%-5% SOLUTION 1,000 ML IV SCH (03:52)
[2019-02-22] MEDS: ATIVAN IV PRN ×2 (03:53→23:19)
[2019-02-22] MEDS: HUMALOG SUBQ SCH ×4 (06:55→23:30)
[2019-02-22] MEDS: LOVENOX SUBQ SCH (06:55)
[2019-02-22] MEDS: CYANOCOBALAMIN IM SCH (09:26)
[2019-02-22] MEDS: ASPIRIN EC PO SCH (09:26)
[2019-02-22] MEDS: M.V.I.-12 10 ML, FOLIC ACID 1 MG, MAGNESIUM SULFATE 1 GM, THIAMINE 100 MG in NS 1,000 ML IV SCH (09:26)
[2019-02-22] MEDS: THIAMINE 100 MG in NS 50 ML IV SCH (13:31)
--- NOTE | 2019-02-22 14:43 | PROGRESS NOTE ---
DATE: 02/22/2019 SUBJECTIVE: Mr. Lopez is admitted with a dominant left hemisphere ischemic stroke, mostly posterior. He has previously been followed by Dr. Bland. He has had some confusion in the hospital which has been improving. His stroke symptoms have shown improvement. OBJECTIVE: Vital signs: He is afebrile. Blood pressure 142/79, pulse 79. General: He is sitting up in bed, awake, alert, and cooperative. Neurologic: He cannot tell me where he is at, the year, the president. He did state February. Left, right, and digit distinction preserved. He has some difficulty with naming at times. He otherwise is able to speak in some complete sentences appropriately. Repetition is intact. Pupils are equal, round, and reactive. Gaze is conjugate. He has full lateral eye movements. There is a right hemianopia. I can overcome the right deltoid. Triceps and biceps at 4/5. Blood glucose 166-256. ASSESSMENT AND PLAN: Dominant left hemisphere ischemic infarction, mostly posterior. He continues to have a right hemianopia, though both the language and motor deficits have shown significant improvement compared to early on, still not normal. I would continue with risk factor modification, aggressive blood sugar control. Continue aspirin and statin. I understand he had some prominent confusion earlier, though that seems to have shown some improvement. cc: Madisyn Calles MD
--- NOTE | 2019-02-22 17:16 | PROGRESS NOTE ---
DATE: 02/22/2019 SUBJECTIVE: Mr. Lopez appears comfortable. He was sleeping. He was easy to arouse. Seems to be doing better from the standpoint. He did pull out his IV. They were able to get an IV back, but I think if he pulls this one out, we can stop his IV. OBJECTIVE: Vital Signs: Temperature is 97.7 degrees, pulse 82, respirations 18, blood pressure 134/73. Urine output is 2700 mL. Eyes: Pupils are equal and round. Lungs: Lungs are clear in all lung hairston. Cardiovascular: Exam with regular rhythm and rate without murmur or S3. Abdomen: Soft. Skin: Warm and dry. ASSESSMENT AND PLAN: 1. Dominant left hemisphere ischemic infarction, mostly posterior. Continues to have right hemianopia as well as both language and motor deficits, but significant improvement compared to admission and continue risk factor modification, aggressive blood sugar control, aspirin, and statin. Still has some episodes of confusion, but that has improved. 2. Diabetes mellitus. Sugars appear well controlled. Hematocrit 45, hemoglobin 16. Blood sugars 166, 176, and 256, so will continue with discharge planning. Continue physical therapy and I will add occupational therapy on there as well. He gets thiamine 100 mg IV q 24 hours. We can change that to p.o. and we can stop his Clinimix. cc: Yossi Barlow MD
[2019-02-22] MEDS: LIPITOR PO SCH (21:38)
[2019-02-22] MEDS: HALDOL IV PRN (21:38)
[2019-02-22] MEDS: PROTONIX IV SCH (21:38)
[2019-02-23] MEDS ORDERED: PHENOBARBITAL IV ONE (01:01)
[2019-02-23] MEDS ORDERED: ATIVAN IV ONE (01:03)
[2019-02-23 01:39] LABS: BASO% 0.8 % (0.0-0.8); EOS% 4.7 % (0.0-10.0); HEMATOCRIT 44.1 % (42.0-52.0); HEMOGLOBIN 15.3 g/dL (14.0-18.0); IMM GRAN# 0.05 X1000 (0.0-0.04); IMM GRAN% 0.4 % (0.0-0.5); LYMPH# 2.71 X1000 (1.2-3.4); LYMPH% 21.2 % (20.5-51.1); MCH 30.4 PG (27-31); MCHC 34.7 g/dL (33-37); MCV 87.7 FL (81-99); MONO# 1.12 X1000 (0.11-0.59); MONO% 8.8 % (1.7-9.3); MPV 9.8 FL (7.4-10.4); NEUT# 8.21 X1000 (1.4-6.5); NEUT% 64.1 % (42.2-75.2); PLT 243 X1000 (130-400); RBC 5.03 XMIL (4.7-6.1); RDW 12.8 % (11.5-14.5); WBC 12.79 X1000 (4.8-10.8)
[2019-02-23] MEDS: CLINIMIX E 4.25%-5% SOLUTION 1,000 ML IV SCH ×2 (01:45→09:08)
[2019-02-23 01:54] LABS: AGAP 8; ALB/GLOB RATIO 1.3; ALBUMIN 3.5 g/dL (3.5-5.0); ALKALINE PHOSPHATASE 66 U/L (32-122); BUN 18 mg/dL (8-22); CALCIUM 9.3 mg/dL (8.8-10.2); CHLORIDE 100 mmol/L (98-107); COSMO 273; CREATININE 0.5 mg/dL (0.7-1.2); ESTIMATED GFR > 60; GLUCOSE 151 mg/dL (70-104); GOT 28 U/L (10-34); GPT 30 U/L (10-44); POTASSIUM 4.4 mmol/L (3.5-5.1); SODIUM 134 mmol/L (136-145); TCO2 26 mmol/L (25-35); TOTAL BILIRUBIN 0.53 mg/dL (0.20-1.00); TOTAL PROTEIN 6.3 g/dL (6.3-8.3)
[2019-02-23] MEDS: ATIVAN IV PRN (05:28)
[2019-02-23] MEDS: LOVENOX SUBQ SCH (05:28)
[2019-02-23] MEDS: HUMALOG SUBQ SCH ×4 (06:33→22:28)
[2019-02-23] MEDS: HALDOL IV PRN ×2 (09:05→22:28)
[2019-02-23] MEDS: CYANOCOBALAMIN IM SCH (09:07)
[2019-02-23] MEDS: M.V.I.-12 10 ML, FOLIC ACID 1 MG, MAGNESIUM SULFATE 1 GM, THIAMINE 100 MG in NS 1,000 ML IV SCH (09:08)
[2019-02-23] MEDS: ASPIRIN EC PO SCH (09:08)
[2019-02-23] MEDS: THIAMINE 100 MG in NS 50 ML IV SCH (13:27)
[2019-02-23] MEDS ORDERED: RISPERDAL M-TAB PO SCH (21:00)
--- NOTE | 2019-02-23 21:30 | PROGRESS NOTE ---
DATE: 02/23/2019 SUBJECTIVE: Patient is still very agitated and can get very difficult to redirect. There has obviously been some cognitive impairment associated with his stroke. OBJECTIVE: Vital signs: Blood pressure 160/79, heart rate of 84, respiratory 18, temperature 95 degrees, 100% on room air. Cardiovascular: Regular rate and rhythm. Pulmonary: Bilateral breath sounds clear to auscultation. GI: Was soft, nontender, nondistended. Bowel sounds were positive. PROBLEM LIST: 1. Encephalopathy. Likely related to stroke and underlying significant alcoholism. We will continue to follow. Hopefully, we will be able to reach a point where he is a rehab candidate, but he also is uninsured, so it is going to make things very difficult. 2. Acute ischemic stroke. We are going to continue aspirin and blood sugar control. 3. Type 2 diabetes. He is overall doing okay. DISPOSITION: Pending his clinical status, but right now he is too agitated really to do anything. I am going to start some Risperdal at night and see if we can kind to help out with his confusion. cc: Chauncey Jenkins MD
[2019-02-23] MEDS: PROTONIX IV SCH (22:28)
[2019-02-23] MEDS: LIPITOR PO SCH (22:28)
[2019-02-24] MEDS: LOVENOX SUBQ SCH (05:43)
[2019-02-24] MEDS: HUMALOG SUBQ SCH ×4 (06:01→21:57)
[2019-02-24] MEDS: VITAMIN B-1 PO SCH (10:29)
[2019-02-24] MEDS: ASPIRIN EC PO SCH (10:29)
[2019-02-24] MEDS: THERA M PLUS PO SCH (10:30)
--- NOTE | 2019-02-24 16:08 | PROGRESS NOTE ---
DATE: 02/24/2019 SUBJECTIVE: Patient has no complaints. OBJECTIVE: Vital Signs: Blood pressure 176/81, heart rate 98, respiratory rate 16, temperature 98.4 degrees, O2 saturation 98% on room air. Cardiovascular: Regular rate and rhythm. Pulmonary: Bilateral breath sounds clear to auscultation. GI: Soft, nontender, nondistended. Bowel sounds are positive. LABORATORY DATA: I do not have any white count today. Get labs tomorrow. Sugars have been overall controlled. PROBLEM LIST: 1. Encephalopathy related to a large dominant area stroke. We will continue to follow. 2. Acute ischemic stroke in the left posterior cerebral arterial territory and then some tiny ones in the right cerebral and left cerebellar hemisphere. So, patient is doing okay. We will continue current measures. He is on aspirin and Lipitor. We will continue to follow. 3. History of alcohol abuse, although his family denied any alcohol use and was documented on admission. 4. Type 2 diabetes. His sugars are overall well controlled. We will continue to monitor. DISPOSITION: Pending his clinical status. cc: Chauncey Jenkins MD
[2019-02-24 16:48] LABS: URINE SOURCE CATH
[2019-02-24 16:58] LABS: BILIRUBIN URINE NEGATIVE (NEGATIVE); BLOOD URINE LARGE (NEGATIVE); COLOR YELLOW; GLUCOSE URINE 200 mg/dL (NEGATIVE); KETONE URINE NEGATIVE (NEGATIVE); LEUKOCYTES URINE LARGE (NEGATIVE); NITRITE URINE NEGATIVE (NEGATIVE); PROTEIN URINE 30 mg/dL (NEGATIVE); SP GRAVITY URINE 1.011; TURBIDITY URINE HAZY (CLEAR); UROBILINOGEN URINE 2 mg/dL (NORMAL)
[2019-02-24 17:28] LABS: UR EPITHELIAL CELLS <10 /HPF (<10); URINE BACTERIA 2+ /HPF; URINE RBC TNTC /HPF (<10); URINE WBC TNTC /HPF (<10)
[2019-02-24 17:35] LABS: URINE CASTS NONE SEEN; URINE CRYSTALS NONE SEEN; URINE YEAST PRESENT
[2019-02-24] MEDS: PROTONIX PO SCH (17:59)
[2019-02-24] MEDS: LIPITOR PO SCH (21:01)
[2019-02-24] MEDS: RISPERDAL M-TAB PO SCH (21:02)
[2019-02-25] MEDS: LOVENOX SUBQ SCH (05:57)
[2019-02-25] MEDS: HUMALOG SUBQ SCH ×4 (06:10→20:53)
[2019-02-25 07:49] LABS: BASO# 0.05 X1000 (0.0-0.2); BASO% 0.4 % (0.0-0.8); EOS# 0.35 X1000 (0.0-0.7); EOS% 2.9 % (0.0-10.0); HEMATOCRIT 44.6 % (42.0-52.0); HEMOGLOBIN 15.6 g/dL (14.0-18.0); IMM GRAN# 0.03 X1000 (0.0-0.04); IMM GRAN% 0.3 % (0.0-0.5); LYMPH# 2.27 X1000 (1.2-3.4); LYMPH% 19.1 % (20.5-51.1); MCH 30.8 PG (27-31); MCV 88.1 FL (81-99); MONO# 0.87 X1000 (0.11-0.59); MONO% 7.3 % (1.7-9.3); MPV 9.6 FL (7.4-10.4); PLT 253 X1000 (130-400); RBC 5.06 XMIL (4.7-6.1); WBC 11.87 X1000 (4.8-10.8)
[2019-02-25 08:14] LABS: AGAP 16; BUN 15 mg/dL (8-22); CALCIUM 9.4 mg/dL (8.8-10.2); CHLORIDE 99 mmol/L (98-107); COSMO 277; CREATININE 0.6 mg/dL (0.7-1.2); ESTIMATED GFR > 60; GLUCOSE 212 mg/dL (70-104); POTASSIUM 4.2 mmol/L (3.5-5.1); SODIUM 135 mmol/L (136-145); TCO2 20 mmol/L (25-35)
[2019-02-25] MEDS: ASPIRIN EC PO SCH (10:36)
[2019-02-25] MEDS: VITAMIN B-1 PO SCH (10:36)
[2019-02-25] MEDS: THERA M PLUS PO SCH (10:36)
[2019-02-25] MEDS: PROTONIX PO SCH (10:36)
--- NOTE | 2019-02-25 18:05 | PROGRESS NOTE ---
DATE: 02/25/2019 SUBJECTIVE: Patient continues to be confused and in physical restraints. OBJECTIVE: Vital Signs: Temperature 97.8 degrees, heart rate 89, respiratory rate 19, blood pressure 132/66, O2 saturation 99% on room air. General examination: This is 63-year-old male, lying in bed, in no acute distress. Cardiovascular: S1, S2 heard. No murmurs, gallops, or rubs. Regular rate and rhythm. Respiratory: Clear bilaterally to auscultation. No work of breathing or using accessory muscles. Abdomen: Soft. Nontender to palpation. Bowel sounds present. No organomegaly. Extremities: No clubbing, cyanosis, or edema. Peripheral pulses present in both legs. Neurological: The patient is disoriented, confused. Right-sided hemiplegia noted. ASSESSMENT AND PLAN: 1. Acute ischemic stroke with left posterior cerebral artery territory and tiny ones in the right cerebral and left cerebellar hemisphere. The patient is doing okay. Physical therapy and occupational therapy are working with this patient. Will continue to monitor. 2. History of alcohol abuse has been documented per a member of the family. 3. Diabetes type 2. We will continue with the sliding-scale insulin and Accu-Cheks before meals and also at bedtime. 4. Disposition. I think this patient will stay in the hospital for more time because he had a large stroke and physical therapy is working with this patient. cc: Tres Astorga MD
[2019-02-25] MEDS: RISPERDAL M-TAB PO SCH (20:51)
[2019-02-25] MEDS: LIPITOR PO SCH (20:52)
[2019-02-26] MEDS: LOVENOX SUBQ SCH (06:37)
[2019-02-26] MEDS: HUMALOG SUBQ SCH ×4 (06:38→20:56)
[2019-02-26] MEDS: THERA M PLUS PO SCH (10:12)
[2019-02-26] MEDS: PROTONIX PO SCH (10:12)
[2019-02-26] MEDS: VITAMIN B-1 PO SCH (10:12)
[2019-02-26] MEDS: ASPIRIN EC PO SCH (10:12)
--- NOTE | 2019-02-26 20:02 | PROGRESS NOTE ---
DATE: 02/26/2019 SUBJECTIVE: Patient continues to be confused. Patient continues to be in physical restraints. No acute issues noted as per nursing staff overnight. OBJECTIVE: Vital Signs: Temperature 97.8 degrees, heart rate 93, respiratory rate 19, blood pressure 160/85, O2 saturation 99% on 3 L nasal cannula. General: This is a chronically ill- appearing, looking older than his stated age, 64-year-old male, lying in bed, in no acute distress. Cardiovascular: S1, S2 heard. No murmurs, gallops, or rubs. Regular rate and rhythm. Respiratory: Clear bilaterally to auscultation. No work of breathing or using accessory muscles. Abdomen: Soft, nontender to palpation. Bowel sounds present. No organomegaly. Extremities: No clubbing, cyanosis, or edema. Peripheral pulses present in both legs. Neurological: Patient is disoriented and confused. Right-sided hemiplegia noted. ASSESSMENT AND PLAN: 1. Acute ischemic stroke with left posterior cerebral artery territory and tiny strokes in the right cerebral and left cerebellar hemisphere. The patient is stable. The patient has been evaluated by Neurology while he was here. At this point, physical therapy and occupational therapy continue to work with this patient. The patient is on prediabetic diet. So, at this point, we will continue with the same management. 2. History of alcohol abuse. Stable. No signs of withdrawals at this point. 3. Diabetes mellitus type 2. Continue with sliding scale insulin and Accu-Chek before meals and also at bedtime. 4. Disposition. Unfortunately, the patient does not have any insurance and we were trying to get a rehab bed for him. At this time, patient is going to be transferred to [facility]. We will continue occupational therapy and physical therapy, and we will continue working to find a placement for this patient. cc: Tres Astorga MD
[2019-02-26] MEDS: LIPITOR PO SCH (20:12)
[2019-02-26] MEDS: RISPERDAL M-TAB PO SCH (20:12)
[2019-02-27] MEDS: NICODERM PATCH TD PRN (00:26)
[2019-02-27] MEDS: LOVENOX SUBQ SCH (05:16)
[2019-02-27] MEDS: HUMALOG SUBQ SCH ×2 (06:31→10:57)
[2019-02-27] MEDS: VITAMIN B-1 PO SCH (08:12)
[2019-02-27] MEDS: PROTONIX PO SCH (08:12)
[2019-02-27] MEDS: ASPIRIN EC PO SCH (08:12)
[2019-02-27] MEDS: THERA M PLUS PO SCH (08:12)
[2019-02-27] MEDS: HUMALOG (PARKWAY) SUBQ SCH ×2 (17:04→21:11)
[2019-02-27] MEDS: LIPITOR PO SCH (20:59)
[2019-02-27] MEDS: RISPERDAL M-TAB PO SCH (20:59)
[2019-02-28] MEDS: BENADRYL IV PRN (00:31)
[2019-02-28] MEDS: HALDOL IV PRN (00:32)
[2019-02-28] MEDS: NICODERM PATCH TD PRN (00:48)
--- NOTE | 2019-02-28 01:55 | PROGRESS NOTE ---
DATE: 02/27/2019 SUBJECTIVE: Patient has no complaints other than notes that he is a little chilly today. He denies any cough, congestion. Denies any GI or issues currently. PHYSICAL EXAMINATION: Vital Signs: Reviewed. Temperature 97.4 degrees, pulse 87, respiratory rate 18, BP 131/77. General: Patient is pleasant. He is in no distress. HEENT: Normocephalic. Neck: Supple. Cardiovascular: Regular rate. Chest: Clear. Abdomen: Soft. Extremities: Moves all extremities. Neurologic: No changes. He does have right-sided hemiplegia. ASSESSMENT: 1. Acute ischemic cerebrovascular accident, left posterior cerebellar artery with right-sided hemiplegia. 2. Chronic alcohol abuse. 3. Type 2 diabetes. PLAN: We are going to continue patient in the hospital. Continue to follow. Continue physical therapy and appreciate assistance from [employer] in discharge planning. We are going to stop his Lovenox. He has been on this for several weeks. At this point, we are going to transition him over to low dose Xarelto for DVT prevention. cc: Anoop Archuleta MD
[2019-02-28] MEDS: XARELTO PO SCH (05:03)
[2019-02-28] MEDS: HUMALOG (PARKWAY) SUBQ SCH ×4 (06:32→20:36)
[2019-02-28] MEDS: ASPIRIN EC PO SCH (10:50)
[2019-02-28] MEDS: VITAMIN B-1 PO SCH (10:50)
[2019-02-28] MEDS: THERA M PLUS PO SCH (10:50)
[2019-02-28] MEDS: PROTONIX PO SCH (10:50)
--- NOTE | 2019-02-28 12:14 | PROGRESS NOTE ---
DATE: 02/28/2019 SUBJECTIVE: Patient with no new complaints. PHYSICAL EXAMINATION: Vital Signs: Reviewed. Temp 97.8 degrees, pulse 86, respiratory rate 18, BP 158/79. General: Patient is lying flat in bed. He is in no distress. HEENT: Normocephalic. Neck: Supple. Cardiovascular: Regular rate. Chest: Clear and nonlabored. Abdomen: Soft, nondistended. Extremities: No edema. Neurologic: No focal changes from previous exams. ASSESSMENT: 1. Acute ischemic cerebrovascular accident with left posterior cerebral stroke. 2. Chronic alcohol abuse. 3. Diabetes type 2. PLAN: We are going to continue the patient in the hospital. Continue to follow. We will continue physical therapy. Further orders as needed. cc: Anoop Archuleta MD
[2019-02-28] MEDS: RISPERDAL M-TAB PO SCH (20:36)
[2019-02-28] MEDS: LIPITOR PO SCH (20:36)
[2019-03-01] MEDS: XARELTO PO SCH (05:09)
[2019-03-01] MEDS: HUMALOG (PARKWAY) SUBQ SCH ×5 (06:33→21:57)
[2019-03-01] MEDS: VITAMIN B-1 PO SCH (08:41)
[2019-03-01] MEDS: PROTONIX PO SCH (08:41)
[2019-03-01] MEDS: THERA M PLUS PO SCH (08:41)
[2019-03-01] MEDS: ASPIRIN EC PO SCH (08:41)
[2019-03-01] MEDS: RISPERDAL M-TAB PO SCH (21:57)
[2019-03-01] MEDS: LIPITOR PO SCH (21:57)
[2019-03-02] MEDS: XARELTO PO SCH (06:35)
[2019-03-02] MEDS: HUMALOG (PARKWAY) SUBQ SCH ×4 (06:35→23:13)
--- NOTE | 2019-03-02 07:23 | PROGRESS NOTE ---
DATE: 03/01/2019 SUBJECTIVE: Patient without any new complaints. He still is easily confused, disoriented. PHYSICAL EXAMINATION: Vital Signs: Reviewed. Temp 97.6 degrees, pulse 88, respiratory rate 18, blood pressure 135/67. General: Patient is in no current respiratory distress. He is awake, alert, although easily confused. HEENT: Normocephalic. Neck: Supple. Cardiovascular: Regular rate. No murmurs. Chest: Clear, nonlabored. Abdomen: Soft, nondistended. Extremities: No edema. ASSESSMENT: 1. Acute ischemic stroke, left posterior cerebral artery. 2. Acute delirium secondary to his stroke. 3. History of alcohol abuse, currently stable. 4. No withdrawal issues currently. 5. Type 2 diabetes. PLAN: Patient certainly will need rehab and possibly even detention care if he does not improve. Currently, he cannot be discharged home to stay by himself. We are going to continue current management, and we will follow until a bed is available. cc: Anoop Archuleta MD
[2019-03-02] MEDS: ASPIRIN EC PO SCH (09:19)
[2019-03-02] MEDS: VITAMIN B-1 PO SCH (09:19)
[2019-03-02] MEDS: THERA M PLUS PO SCH (09:19)
[2019-03-02] MEDS: PROTONIX PO SCH (09:19)
[2019-03-02] MEDS: NICODERM PATCH TD PRN (09:23)
--- NOTE | 2019-03-02 18:54 | PROGRESS NOTE ---
DATE: 03/02/2019 SUBJECTIVE: The patient reports feeling fine. According to previous note, he is easily confused and disoriented, but he is oriented upon my examination today. OBJECTIVE: Vital Signs: Temperature 98.2 degrees, heart rate 88, respiratory rate 20, blood pressure 121/81, O2 saturation 100% on room air. General: This is a 63-year-old, male, lying in bed in no acute distress. Cardiovascular: S1, S2 heard. No murmurs, gallops, or rubs. Regular rate and rhythm. Respiratory: Clear bilaterally to auscultation. No work of breathing or using accessory muscles. Abdomen: Soft. Nontender to palpation. Bowel sounds present. No organomegaly. Neurological: Patient has right-side hemiparesis. Speech is okay. ASSESSMENT: 1. Acute ischemic stroke, left posterior cerebral artery. 2. Acute delirium secondary to his stroke. 3. History of alcohol abuse. 4. Diabetes type 2. PLAN: At this point, we will continue managing his chronic medical conditions. Regarding stroke, patient is receiving physical therapy and occupational therapy. The does not have any insurance coverage, so no rehab facility is an option for him, so we will continue to work with this patient with physical therapy here. He will be here with as until he recovers. cc: Tres Astorga MD
[2019-03-02] MEDS: RISPERDAL M-TAB PO SCH (23:12)
[2019-03-02] MEDS: LIPITOR PO SCH (23:15)
[2019-03-03] MEDS: XARELTO PO SCH (05:55)
[2019-03-03] MEDS: HUMALOG (PARKWAY) SUBQ SCH ×4 (06:10→22:17)
[2019-03-03] MEDS: ASPIRIN EC PO SCH ×2 (11:27→14:14)
[2019-03-03] MEDS: VITAMIN B-1 PO SCH ×2 (11:27→14:15)
[2019-03-03] MEDS: PROTONIX PO SCH ×2 (11:27→14:15)
[2019-03-03] MEDS: THERA M PLUS PO SCH ×2 (11:27→14:14)
--- NOTE | 2019-03-03 11:50 | PROGRESS NOTE ---
DATE: 03/03/2019 SUBJECTIVE: Patient reports feeling okay, but still having some problem with his speech. He is sometimes confused. Now, he is working with physical therapy. OBJECTIVE: Vital Signs: Temperature 97.5, heart rate 96, respiratory rate 16, blood pressure 158/76, and O2 saturation 100% on room air. General: This is a 63-year-old male lying in bed in no acute distress. Cardiovascular: S1, S2 heard. No murmurs, gallops, or rubs. Regular rate and rhythm. Respiratory: Clear bilaterally to auscultation. No work of breathing or using accessory muscles. Abdomen: Soft, nontender to palpation. Bowel sounds present. No organomegaly. Extremities: No clubbing, cyanosis, or edema. Peripheral pulses present in both legs. Neurologic: Slow speech. Patient has right sided hemiparesis. ASSESSMENT: 1. Acute ischemic stroke left posterior cerebral artery. 2. Acute delirium secondary to his stroke. 3. History of alcohol abuse. 4. Diabetes mellitus type 2. 5. At this point, we will continue with physical therapy, occupational therapy, and speech therapy has been reconsulted because of some reports that this patient may be somehow choking on food. We will repeat a barium swallow evaluation. We will go from there. cc: Tres Astorga MD
[2019-03-03] MEDS: LIPITOR PO SCH (22:17)
[2019-03-03] MEDS: RISPERDAL M-TAB PO SCH (22:19)
[2019-03-04] MEDS: HUMALOG (PARKWAY) SUBQ SCH ×3 (06:23→21:20)
[2019-03-04] MEDS: XARELTO PO SCH (06:24)
[2019-03-04] MEDS: PROTONIX PO SCH (10:15)
[2019-03-04] MEDS: VITAMIN B-1 PO SCH (10:15)
[2019-03-04] MEDS: ASPIRIN EC PO SCH (10:15)
[2019-03-04] MEDS: THERA M PLUS PO SCH (10:15)
--- NOTE | 2019-03-04 12:23 | PROGRESS NOTE ---
DATE: 03/04/2019 SUBJECTIVE: The patient reports feeling okay. No acute issues noted as per nursing staff overnight. A little problem with his speech. The patient is feeling okay otherwise. OBJECTIVE: Vital Signs: Temperature 97.9 degrees, heart rate 86, respiratory rate 20, blood pressure 126/78, O2 saturation 99% on room air. General: This is a 63-year-old, male, lying in bed in no acute distress. Cardiovascular: S1, S2 heard. No murmurs, gallops, or rubs. Regular rate and rhythm. Respiratory: Clear bilaterally to auscultation. No work of breathing or using accessory muscles. Abdomen: Soft, nontender to palpation. Bowel sounds present. No organomegaly. Extremities: No clubbing, cyanosis, or edema. Peripheral pulses present in both legs. Neurological: Slow speech, but otherwise no new neurological signs. ASSESSMENT: 1. Acute ischemic stroke of the left posterior cerebral artery. 2. Acute delirium secondary to stroke. 3. History of alcohol abuse. 4. Diabetes mellitus type 2. PLAN: Will continue with physical therapy, occupational therapy, and speech therapy. The patient is waiting for placement. Unfortunately, this patient does not have any insurance. Will continue to monitor. cc: Tres Astorga MD
[2019-03-04] MEDS ORDERED: RISPERDAL PO SCH (21:00)
[2019-03-04] MEDS: LIPITOR PO SCH (21:19)
[2019-03-05] MEDS: RISPERDAL M-TAB PO SCH ×2 (03:13→20:27)
[2019-03-05] MEDS: HUMALOG (PARKWAY) SUBQ SCH ×4 (06:19→21:45)
[2019-03-05] MEDS: XARELTO PO SCH (06:19)
[2019-03-05] MEDS: ASPIRIN EC PO SCH (09:53)
[2019-03-05] MEDS: PROTONIX PO SCH (09:53)
[2019-03-05] MEDS: THERA M PLUS PO SCH (09:53)
[2019-03-05] MEDS: VITAMIN B-1 PO SCH (09:53)
--- NOTE | 2019-03-05 13:25 | PROGRESS NOTE ---
DATE: 03/05/2019 SUBJECTIVE: Patient reports feeling okay. No acute issues noted. OBJECTIVE: Vital Signs: Temperature 97.7 degrees, heart rate 89, respiratory rate 16, blood pressure 154/76, O2 saturation 96% on room air. General: This is a 63-year-old male lying in bed in no acute distress. Cardiovascular: S1, S2 heard. No murmurs, gallops, or rubs. Regular rate and rhythm. Respiratory: Clear bilaterally to auscultation. Abdomen: Soft, nontender to palpation. Bowel sounds present. Extremities: No clubbing, cyanosis, or edema. Neurological: Patient is alert, awake. ASSESSMENT: 1. Acute ischemic stroke of the left posterior cerebral artery. 2. Acute delirium secondary to stroke. 3. History of alcohol abuse. 4. Diabetes mellitus type 2. PLAN: We will continue with physical therapy, occupational therapy and speech therapy. The patient does not have any insurance so we will continue to provide services for him. We will continue to monitor. cc: Tres Astorga MD
[2019-03-05] MEDS: LIPITOR PO SCH (20:23)
[2019-03-05] MEDS: HALDOL IV PRN (23:49)
[2019-03-05] MEDS: BENADRYL IV PRN (23:49)
[2019-03-06] MEDS: HALDOL IV PRN ×3 (02:33→20:07)
[2019-03-06] MEDS: BENADRYL IV PRN ×2 (02:34→20:07)
[2019-03-06] MEDS: XARELTO PO SCH (05:02)
[2019-03-06] MEDS: HUMALOG (PARKWAY) SUBQ SCH ×4 (06:33→21:34)
[2019-03-06] MEDS: PROTONIX PO SCH (06:33)
[2019-03-06] MEDS: ASPIRIN EC PO SCH (09:25)
[2019-03-06] MEDS: VITAMIN B-1 PO SCH (09:25)
[2019-03-06] MEDS: THERA M PLUS PO SCH (09:25)
--- NOTE | 2019-03-06 13:58 | PROGRESS NOTE ---
DATE: 03/06/2019 SUBJECTIVE: Patient reports feeling okay. No complaints at this point. OBJECTIVE: Vital Signs: Temperature 97.8, heart rate 74, respiratory rate 18, blood pressure 110/67, O2 saturation 100% on room air. General: This is a 63-year-old male, lying in bed, in no acute distress. Cardiovascular: S1, S2 heard. No murmurs, gallops, or rubs. Regular rate and rhythm. Respiratory: Clear bilaterally to auscultation. No work of breathing or using accessory muscles. Abdomen: Soft, nontender to palpation. Bowel sounds present. No organomegaly. Extremities: No clubbing, cyanosis, or edema. Peripheral pulses present in both legs. Neurological: Patient is alert, oriented x3. There is moderate strength of 3/5 in the right upper extremity. Both lower extremities are 5/5 as well after the left upper extremity. ASSESSMENT: 1. Acute ischemic stroke of the left posterior cerebral artery. 2. Acute delirium secondary to stroke. 3. History of alcohol abuse. 4. Diabetes mellitus type 2. PLAN: At this point, patient is stable. Basically he is still in the hospital receiving physical therapy, occupational therapy and speech therapy. Patient does not have any insurance. At this point, we will continue with the same management. I have talked with the criminal justice social worker about this patient and he may have a place to go next week. cc: Tres Astorga MD
[2019-03-06] MEDS: LIPITOR PO SCH (20:07)
[2019-03-06] MEDS: RISPERDAL M-TAB PO SCH (20:07)
[2019-03-07] MEDS: BENADRYL IV PRN ×3 (02:23→22:33)
[2019-03-07] MEDS: HALDOL IV PRN ×4 (02:23→22:33)
[2019-03-07] MEDS: XARELTO PO SCH (05:05)
[2019-03-07] MEDS: HUMALOG (PARKWAY) SUBQ SCH ×4 (06:02→22:00)
[2019-03-07] MEDS ORDERED: ZOFRAN IV PRN (06:11)
[2019-03-07] MEDS: PROTONIX PO SCH (06:11)
[2019-03-07] MEDS ORDERED: APRESOLINE IV PRN (06:12)
[2019-03-07] MEDS: THERA M PLUS PO SCH (09:40)
[2019-03-07] MEDS: ASPIRIN EC PO SCH (09:41)
[2019-03-07] MEDS: VITAMIN B-1 PO SCH (09:41)
--- NOTE | 2019-03-07 10:48 | PROGRESS NOTE ---
DATE: 03/07/2019 SUBJECTIVE: No acute events overnight. OBJECTIVE: Vital Signs: Temperature 97.4 degrees, pulse 83, respiratory rate 16, blood pressure 134/105, oxygen saturation 99 on room air. HEENT: Head normocephalic, no trauma. PERRLA. Neck: Supple. No JVD. No masses. Central trachea. Chest: Clear to auscultation. No wheezing. No rales. Abdomen: Soft, nontender, nondistended. No hepatosplenomegaly. Extremities: No edema, no clubbing, no cyanosis. Neurological: The patient is awake, alert. He is oriented. Right upper extremity strength 3/5. Lower extremities are good. Strength is stable. He is following commands and sometimes he has a really hard time to find the right words. ASSESSMENT AND PLAN: 1. Acute ischemic stroke of the left post posterior cerebral artery. 2. Acute delirium secondary to stroke. 3. History of alcohol abuse. 4. Type 2 diabetes. At this point, this patient seems to be stable. Continue physical therapy, occupational therapy and speech therapy, pending placement. cc: Elvis Irwin MD
[2019-03-07] MEDS: RISPERDAL M-TAB PO SCH (20:27)
[2019-03-07] MEDS ORDERED: LIPITOR PO SCH (21:00)
[2019-03-08] MEDS: XARELTO PO SCH (05:05)
[2019-03-08] MEDS: HUMALOG (PARKWAY) SUBQ SCH ×2 (06:22→16:27)
[2019-03-08] MEDS: PROTONIX PO SCH (06:26)
[2019-03-08] MEDS: VITAMIN B-1 PO SCH (08:44)
[2019-03-08] MEDS: ASPIRIN EC PO SCH (08:44)
[2019-03-08] MEDS: THERA M PLUS PO SCH (08:44)
[2019-03-08 11:07] VITALS: BP 122/73
[2019-03-08] MEDS ORDERED: GLUCOTROL PO SCH (12:30)
--- NOTE | 2019-03-08 13:00 | PROGRESS NOTE ---
DATE: 03/08/2019 SUBJECTIVE: He has no major complaints. He is sitting up in bed. OBJECTIVE: Vital Signs: Blood pressure is 122/73, heart rate of 85, respiratory rate 20, temperature 97.7 degrees, saturating 99% on room air. Cardiovascular: Regular rate and rhythm. Pulmonary: Bilateral breath sounds. Clear to auscultation. GI: Soft, nontender, nondistended. Bowel sounds are positive. Blood sugar is 156 to 200. PROBLEM LIST: 1. Acute ischemic stroke of left posterior cerebral artery. He is recuperating well. We are continuing physical therapy and occupational therapy. He is on aspirin, Lipitor. 2. Cognitive deficit related possibly to some vascular dementia versus acute delirium. He is on Risperdal and seems stable. 3. Alcohol abuse. No evidence of withdrawal. Will continue to monitor. 4. Type 2 diabetes. Will monitor blood sugars. He is on no treatment for diabetes. I do not know if it is because he gets hypoglycemic I guess. I am going to start some metformin on him I guess, and will see how he does. Maybe some glipizide. Will just do some low-dose glipizide and see how he does. 5. Disposition. He is homeless, but we are looking into rehab options for him. Family is due to meet with Case Management from [facility]. cc: Chauncey Jenkins MD
--- NOTE | 2019-03-08 14:32 | DISCHARGE SUMMARY ---
ADMISSION DATE: 02/11/2019 DISCHARGE DATE: 03/08/2019 PRIMARY CARE PROVIDER: Dr. Kvng Morocho. CONSULTATIONS: 1. Dr. Aron Bland with Neurology. 2. Dr. Rusty Burnett with General Surgery. PERTINENT PROCEDURES: 1. Head CT: No hemorrhage. Negative brain CT without contrast. 2. Carotid Dopplers: Moderate degree of stenosis in the right carotid artery system, with no significant atherosclerotic changes on the left. 3. Repeat head CT: Recent left temporal occipital infarct. 4. Head and neck CT: Stenosis within each proximal internal carotid artery. 5. Brain MRI: Large recent stroke in the left posterior cerebral artery territory. Tiny recent strokes in the posterior right cerebral hemisphere and left cerebellar hemisphere. DISCHARGE DIAGNOSES: 1. Acute ischemic stroke of the left posterior cerebral artery and posterior right cerebral hemisphere and left cerebral hemisphere. He has continued to receive physical therapy, occupational therapy and speech therapy along with aspirin and Lipitor, followed by Neurology. He has been accepted to a scholarship bed at [facility]. 2. Cognitive deficit, possibly related to vascular dementia. He has been stable on Risperdal. 3. Alcohol abuse. No evidence of withdrawal. 4. Type 2 diabetes. Continue with Glucotrol. 5. Chronic obstructive pulmonary disease. No exacerbation. 6. Carotid stenosis. The patient has been evaluated by General Surgery. Their recommendation is just conservative management and follow up in the near future with repeat ultrasounds. He has already undergone ultrasound as well as CT of the neck. HOSPITAL COURSE: Briefly, Mr. Lopez is a 63-year-old gentleman with a history of COPD, diabetes, and hypertension, who presented to the ED with stroke-like symptoms. Imaging showed a large recent left posterior cerebellar artery infarct with tiny recent strokes in the posterior right cerebellar hemisphere and left cerebellar hemisphere. He had carotid Dopplers done that showed stenosis on the left at 40% to 59%. Echocardiogram with an EF of 65%. Initially upon arrival to the ED, he was combative and had been given Ativan, but the report was that he had had slurred speech, right-sided deficit, and only knew his name, and was found lying on the floor, naked. He was followed by Neurology. His language and motor deficits had much improved. He worked with PT, OT, and Speech Therapy. His agitation was improved with Risperdal. Continued on aspirin and statin therapy. The patient had a prolonged hospital course secondary, I believe, to no insurance. He did qualify for a scholarship at [facility]. He has been accepted there today. They do have a bed, and he will be discharged at this time. VITAL SIGNS: Temperature is 97.7 degrees, heart rate 85, respirations 20, blood pressure 122/73, O2 is 99% on room air. DISCHARGE DIET: Regular with Glucerna shakes with no concentrated sweets. DISCHARGE MEDICATIONS: 1. Lipitor 40 mg p.o. at bedtime. 2. Risperdal 1 mg p.o. at bedtime. 3. Aspirin 81 mg p.o. daily. 4. Glucotrol 2.5 mg p.o. daily. 5. Thera-M Plus 1 each p.o. daily. 6. Thiamine 100 mg p.o. daily. FOLLOWUP: Mr. Lopez is being discharged to [facility], where he will continue with PT, OT, and speech therapy. He is to take all medications as prescribed. He is to follow up with his primary care provider after rehab. He can return to the ED or call 911 for any worsening of symptoms. Dictated by DALE Rangel for Chauncey Jenkins MD cc: MD Kvng Westbrook MD MTDD
== END 2019-03-08 14:52 | DRG 65 ==
LOC: SUPCPDRO → ED 12:38 → SUATTDRO 17:15 → 2N 17:15 → 3N 02-18 13:55 → P.MEDSURG 02-26 17:57
PROVIDERS: ATTEND Internal Medicine